=== PATIENT | male | born 1940 | race Caucasian/White ===

== ENCOUNTER → 2017-10-31 | Outpatient (CLI) | payer MEDICARE, BC | LOC: M SMT 13:39 | DX: N18.6 End stage renal disease (principal); R06.02 Shortness of breath; I12.0 Hypertensive chronic kidney disease with stage 5 chronic kidney disease or end stage renal disease | CPT/HCPCS: 71046 ==

== ENCOUNTER → 2017-12-21 | Outpatient (CLI) | payer MEDICARE, BC | LOC: M SMT 09:26 | DX: R06.02 Shortness of breath (principal); I13.2 Hypertensive heart and chronic kidney disease with heart failure and with stage 5 chronic kidney disease, or end stage renal disease; I50.32 Chronic diastolic (congestive) heart failure; Z99.2 Dependence on renal dialysis; N18.6 End stage renal disease | CPT/HCPCS: 71046 ==

== ENCOUNTER → 2018-02-14 | Outpatient (CLI) | payer MEDICARE, BC ==
[~2018-02-14] MED LIST: ISOVUE-370 76% 100ML VIAL (Q9967) As Ordered
== END ==
LOC: M RAD 10:36
DX: R06.02 Shortness of breath (principal)
CPT/HCPCS: Q9967

== ENCOUNTER 2018-02-26 07:39 | Emergency (ER) | payer MEDICARE, BC ==
[2018-02-26] MEDS: guaiFENesin SYRUP 200 MG/10 ML UDC PO (08:20)
== END 2018-02-26 08:53 | disposition home or self-care (01) ==
LOC: M ED 07:39
DX: J06.9 Acute upper respiratory infection, unspecified (principal); I10 Essential (primary) hypertension; Z86.711 Personal history of pulmonary embolism; Z85.46 Personal history of malignant neoplasm of prostate; Z87.891 Personal history of nicotine dependence; Z88.8 Allergy status to other drugs, medicaments and biological substances; Z79.899 Other long term (current) drug therapy; Z79.01 Long term (current) use of anticoagulants; Z79.82 Long term (current) use of aspirin
CPT/HCPCS: 71046

== ENCOUNTER → 2018-07-07 | Outpatient (CLI) | payer MEDICARE, BC ==
[~2018-07-07] MED LIST changes: +ASPI1TAB PO; +BUME2TAB3 PO; +CALC1CAP31 PO; +DIAL3000 PO; +ELIQ2.5T PO; +FISH1000 PO; +FISH100049 PO; +GUAISYP9 PO; -ISOVUE-370 76% 100ML VIAL (Q9967) As Ordered; +SENS60TA PO; +SEVE800T3 PO; +SIMV40TA2 PO; +TERA10CA3 PO; +TESS100C PO; +VITA500046 PO; +ZITHTAB PO
--- NOTE | 2018-07-07 12:39 | REP ---
Bilateral lower extremity Duplex Doppler venous ultrasound: Real time compression and duplex Doppler interrogation of the bilateral lower extremity deep venous system is performed. Bilaterally, the common femoral, superficial femoral and popliteal veins are fully compressible with transducer pressure and demonstrate normal spontaneous and phasic flow, without evidence of deep venous thrombosis. Impression: No evidence of deep venous thrombosis of the bilateral lower extremity femoral popliteal venous system. Electronically Signed by Isaiah Kim MD 07/07/2018 12:30 P
== END ==
LOC: M RAD 10:17
PROVIDERS: ATTEND Internal Medicine Nephrology
DX: N18.6 End stage renal disease (principal); R60.0 Localized edema; I27.82 Chronic pulmonary embolism

== ENCOUNTER → 2020-01-15 | Outpatient (REF) | payer MEDICARE, BC ==
[~2020-01-15] MED LIST changes: -ASPI1TAB PO; +ASPI81TA26 PO; -SIMV40TA2 PO; +SIMV40TA20 PO
== END ==
LOC: M LAB REF 19:22
PROVIDERS: ATTEND Dermatology
DX: C44.311 Basal cell carcinoma of skin of nose (principal)
CPT/HCPCS: 11102; 88305; G0463

== ENCOUNTER → 2020-03-13 | Outpatient (REF) | payer MEDICARE, BC | LOC: M LAB REF 14:30 | PROVIDERS: ATTEND Dermatology | DX: L90.5 Scar conditions and fibrosis of skin (principal) ==

== ENCOUNTER → 2020-04-03 | Outpatient (REF) | payer MEDICARE, BC | LOC: M LAB REF 13:05 | PROVIDERS: ATTEND Dermatology | DX: L57.0 Actinic keratosis (principal) ==

== ENCOUNTER 2020-06-20 16:19 | Inpatient (IN) | payer MEDICARE, BC ==
[~2020-06-20] VITALS: Ht 177.8 cm; Wt 87.2 kg
[~2020-06-20 16:19] MED LIST changes: +CEFEPIME HCL 1 GM in D5W MINI-BAG PLUS 50 ML IV SCH
[2020-06-20] MEDS ORDERED: FISH13602 PO (17:02)
[2020-06-20] MEDS ORDERED: SIMV40TA20 PO (17:02)
--- NOTE | 2020-06-20 18:26 | REPVR ---
PROCEDURE INFORMATION: Exam: CT Abdomen And Pelvis Without Contrast Exam date and time: 06/20/2020 5:32 PM Age: 79 years old Clinical indication: Abdominal pain; Additional info: Abdominal pain, peritoneal dialysis TECHNIQUE: Imaging protocol: Computed tomography of the abdomen and pelvis without contrast. Radiation optimization: All CT scans at this facility use at least one of these dose optimization techniques: automated exposure control; mA and/or kV adjustment per patient size (includes targeted exams where dose is matched to clinical indication); or iterative reconstruction. COMPARISON: No relevant prior studies available. FINDINGS: Tubes, catheters and devices: Peritoneal dialysis catheter demonstrated coiled in the pelvis. Liver: Normal. No mass. Gallbladder and bile ducts: Normal. No calcified stones. No ductal dilation. Pancreas: Normal. No ductal dilation. Spleen: Normal. No splenomegaly. Adrenal glands: Normal. No mass. Kidneys and ureters: Multiple bilateral renal cysts without obvious complex features. Correlation with ultrasound suggested if clinically desired. Stomach and bowel: Diverticulosis coli without diverticulitis. Boggy appearance of the distal transverse, left and sigmoid colon may be related to incomplete distention. Clinical correlation to exclude changes related to colitis suggested. Appendix: No evidence of appendicitis. Intraperitoneal space: There is a small amount of free intraperitoneal fluid present. Finding consistent with known history of peritoneal dialysis. Small amount of intraperitoneal air may be postprocedural. Clinical correlation to exclude infection suggested. Vasculature: The aortoiliac vessels demonstrate mild atherosclerotic calcification. Lymph nodes: Unremarkable. No enlarged lymph nodes. Urinary bladder: Unremarkable as visualized. Reproductive: Status post prostatectomy. Bones/joints: Unremarkable. No acute fracture. Soft tissues: Bilateral inguinal hernias without incarceration. IMPRESSION: 1. There is a small amount of free intraperitoneal fluid present. Finding consistent with known history of peritoneal dialysis. Small amount of intraperitoneal air may be postprocedural. Clinical correlation to exclude infection suggested. 2. Multiple bilateral renal cysts without obvious complex features. Correlation with ultrasound suggested if clinically desired. 3. Diverticulosis coli without diverticulitis. 4. Bilateral inguinal hernias without incarceration. 5. Boggy appearance of the distal transverse, left and sigmoid colon may be related to incomplete distention. Clinical correlation to exclude changes related to colitis suggested. COMMENTS: Consistent with the [employer]'s Incidental Findings Committee white paper (J Am Shady Radiol 2018): Any incidental renal lesion less than 1 cm or classified as too small to characterize, or any incidental cystic renal lesion characterized as simple-appearing, is likely benign. No follow-up imaging is recommended for these lesions per consensus recommendations based on imaging criteria. Electronically signed by: Alton Kumari On 06/20/2020 18:26:20 PM
--- NOTE | 2020-06-20 18:37 | REP ---
INDICATION: pleuritic abd pain. COMPARISON: 02/26/2018 a PA and lateral view exam TECHNIQUE: Portable FINDINGS: The technique utilized in obtaining the radiograph has magnified the cardiac silhouette and accentuated the interstitial markings. The superior mediastinal structures are midline. The cardiac silhouette is unremarkable in size, shape, and position. The diaphragmatic surfaces of the lungs are regular, and the costophrenic angles are clear. The pulmonary roth are clear. There is chronic left basilar fibrotic change status quo. The imaged osseous structures are intact. IMPRESSION: There is no acute cardiopulmonary disease. <Electronically signed by Jeremiah Chang > 06/20/20 [id number]
[2020-06-20 18:45] LABS: BASO % 0.1 % (0.0-1.0); EOS % 0.1 % (0.0-3.0); HEMATOCRIT 33.8 % (42.0-52.0); LYMPH # 0.7 10^3/uL (1.5-5.0); LYMPH % 3.9 % (24.0-44.0); MEAN CORPUSCULAR HEMOGLOBIN 34.6 pg (27.0-33.0); MEAN CORPUSCULAR HGB CONC 35.5 g/dl (32.0-36.5); MEAN CORPUSCULAR VOLUME 97.4 fl (80.0-96.0); MONO % 5.4 % (0.0-5.0); NEUTROPHILS # 17.1 10^3/uL (1.5-8.5); NEUTROPHILS % 89.9 % (36.0-66.0); PLATELET COUNT, AUTOMATED 168 10^3/uL (150-450); RED BLOOD COUNT 3.47 10^6/uL (4.30-6.10)
[2020-06-20 19:03] LABS: INR 0.98; PROTHROMBIN TIME 13.2 SECONDS (12.5-14.3)
[2020-06-20 19:04] LABS: PARTIAL THROMBOPLASTIN TIME 27.8 SECONDS (24.2-38.5)
[2020-06-20 19:26] LABS: ALBUMIN 2.9 GM/DL (3.2-5.2); ALT/SGPT 35 U/L (12-78); BILIRUBIN,DIRECT 0.3 MG/DL (0.0-0.2); BILIRUBIN,TOTAL 0.8 MG/DL (0.2-1.0); BLOOD UREA NITROGEN 52 MG/DL (7-18); CALCIUM LEVEL 8.9 MG/DL (8.8-10.2); CARBON DIOXIDE LEVEL 27 MEQ/L (21-32); CHLORIDE LEVEL 100 MEQ/L (98-107); CK-MB VALUE MASS 3.4 NG/ML (<3.6); CPK CREATINE PHOSPHOKINASE 100 U/L (39-308); CREATININE FOR GFR 8.61 MG/DL (0.70-1.30); GLOMERULAR FILTRATION RATE 6.4 (>42); GLUCOSE, FASTING 177 MG/DL (70-100); LIPASE 128 U/L (73-393); POTASSIUM SERUM 3.4 MEQ/L (3.5-5.1); SODIUM LEVEL 140 MEQ/L (136-145); TOTAL PROTEIN 6.6 GM/DL (6.4-8.2); TROPONIN I < 0.02 NG/ML (< 0.10)
[2020-06-20 19:53] LABS: VENOUS BASE EXCESS 1.7 (-2.0-2.0); VENOUS HCO3 26.9 MEQ/L (23.0-27.0); VENOUS O2 SATURATION 75.9 % (60.0-80.0); VENOUS PARTIAL PRESSURE CO2 44.5 mmHg (38.0-50.0); VENOUS PARTIAL PRESSURE O2 42.4 mmHg (30.0-50.0); VENOUS PH 7.399 UNITS (7.330-7.430); VENOUS STANDARD HCO3 25.5 MEQ/L; VENOUS TOTAL CO2 28.3 MEQ/L (24.0-28.0)
[2020-06-20] MEDS ORDERED: CINA30TA5 PO (20:28)
[2020-06-20] MEDS ORDERED: CINA60TA3 PO (20:31)
[2020-06-20] MEDS ORDERED: VITA200048 PO (20:31)
[2020-06-20] MEDS: SIMVASTATIN 40 MG TAB PO SCH (21:00)
--- NOTE | 2020-06-20 21:12 | ECGEPIP ---
[facility] - ED Test Date: 2020-06-20 Pat Name: WILBUR HERNANDEZ Department: Room: - Gender: Male Patient Partner: marco : [id number] Requested By: JACKIE Richards Order Number: [id number] Reading MD: Connie Navarrete Measurements Intervals [place] Rate: 78 P: 6 VA: 196 QRS: -33 QRSD: 102 T: 71 QT: 365 QTc: 417 Interpretive Statements SINUS RHYTHM MARKED LEFT AXIS DEVIATION NSTTW abnormalities POSSIBLE PRIOR INFERIOR INFARCT, AGE INDETERMINATE NO PRIOR Electronically Signed on 06-20-2020 21:12:06 EST by Connie Navarrete
[2020-06-20] MEDS: ONDANSETRON 4MG/2ML VIAL IV PRN (21:48)
[2020-06-20] MEDS ORDERED: ACETAMINOPHEN TAB 650MG DOSE (2X325MG) PO PRN (22:00)
[2020-06-20] MEDS ORDERED: VANCOMYCIN HCL 1,000 MG, VIAL MATE ADAPTER 1 EACH in D5W 250 ML IV SCH (22:30)
--- NOTE | 2020-06-20 23:09 | HPEPDOC ---
[facility] Medical History & Physical Date of Admission Jun 20, 2020 Date of Service: Jun 20, 2020 Primary Care Physician: Elian Vizcaino MD Attending Physician: SRIDHAR KOLB MD History and Physical CHIEF COMPLAINT: abdominal pain HISTORY OF PRESENT ILLNESS: Miguel Gonsalez is a 79 YO M with history of ESRD on PD, HTN, CAD who presents to the ED with several hours 8/10 abdominal pain. The patient reports he completed his overnight dialysis as he normally does around 8 AM. There were no issues with his dialysis. At approximately 10:30 AM, the patient began to experience severe sharp periumbilical pain which progressively worsened. In addition he experienced several bouts of nausea and vomiting. He denies any recent illnesses nor any sick contacts. He reports that he has been doing peritoneal dialysis for over 20 years and has never had any complications. He sees Dr. Vizcaino very regularly and has not been told of any issues regarding his dialysis recently. The patient denies any fevers but does report having chills and intermittent sweats. PAST MEDICAL HISTORY: 1. ESRD on PD 2. HTN 3. CAD s/p VT PAST SURGICAL HISTORY: 1. Nonmelanoma skin cancer of left nose, 1999 SOCIAL HISTORY: Never smoker Denies EtOH, other illicit drugs Lives at home with FAMILY HISTORY: Reviewed and noncontributory ALLERGIES: Please see below. REVIEW OF SYSTEMS: Constitutional: No Weight Change, No Fever, No Chills, No Night Sweats, No Fatigue, No Malaise ENT/Mouth: No Hearing Changes, No Ear Pain, No Nasal Congestion, No Sinus Pain, No Hoarseness, No sore throat, No Rhinorrhea, No Swallowing Difficulty Eyes: No Eye Pain, No Swelling, No Redness, No Foreign Body, No Discharge, No Vision Changes Cardiovascular: No Chest Pain, No SOB, No PND, No Dyspnea on Exertion, No Orthopnea, No Claudication, No Edema, No Palpitations Respiratory: No Cough, No Wheezing, No Dyspnea Gastrointestinal: Reports nausea/vomiting, denies diarrhea, reports 8/10 sharp abdominal pain at the umbilicus Genitourinary: No Dysuria Musculoskeletal: No Arthralgias, No Myalgias, No Joint Swelling, No Joint Stiffness, No Back Pain, No Neck Pain Skin: No Skin Lesions, No Pruritis, No Hair Changes, No Breast/Skin Changes, No Nipple Discharge Neuro: No Weakness, No Numbness, No Paresthesias, No Loss of Consciousness, No Syncope, No Dizziness, No Headache, No Coordination Changes, No Recent Falls Psych: No Anxiety/Panic, No Depression, No Insomnia, No Personality Changes, No Delusions Heme/Lymph: No Bruising, No Bleeding, No Transfusions History, No Lymphadenopathy Endocrine: No Polyuria, No Polydipsia, No Temperature Intolerance HOME MEDICATIONS: Please see below. PHYSICAL EXAMINATION: VITAL SIGNS: see below GENERAL: alert and oriented, in no apparent distress, pleasant and conversant in full sentences. Patient observed to be actively vomiting during my examination HEENT: PERRL, EOMI, Oral mucous membranes are moist without lesions. NECK: The patient has no noted JVD. No adenopathy is appreciated. No thyromegaly CHEST/LUNGS: Lungs are clear bilaterally without rhonchi, rales, or wheezes. There is no subcutaneous air appreciated. There is no tenderness to the chest w all. HEART: Regular rate and rhythm. No murmurs, rubs, or gallops are appreciated. Distal pulses are 2+. No carotid bruits appreciated. ABDOMEN: Tender to light palpation around the umbilicus and in the left lower quadrant. Slightly tender in RUQ/RLQ. Are of PD catheter insertion is clean/dry/intact. Positive bowel sounds. No masses/organomegaly EXTREMITIES: No peripheral edema. There is no focal long bone tenderness or deformity. SKIN: The patients skin is warm and dry, without rashes or lesions. PSYCHIATRIC: AAO x 3, normal mood/affect NEUROLOGIC: No obvious focal deficits. LABORATORY DATA: See below. IMAGING: CXR: FINDINGS: The technique utilized in obtaining the radiograph has magnified the cardiac silhouette and accentuated the interstitial markings. The superior mediastinal structures are midline. The cardiac silhouette is unremarkable in size, shape, and position. The diaphragmatic surfaces of the lungs are regular, and the costophrenic angles are clear. The pulmonary roth are clear. There is chronic left basilar fibrotic change status quo. The imaged osseous structures are intact. IMPRESSION: There is no acute cardiopulmonary disease. CT ABD/PEL: IMPRESSION: 1. There is a small amount of free intraperitoneal fluid present. Finding consistent with known history of peritoneal dialysis. Small amount of intraperitoneal air may be postprocedural. Clinical correlation to exclude infection suggested. 2. Multiple bilateral renal cysts without obvious complex features. Correlation with ultrasound suggested if clinically desired. 3. Diverticulosis coli without diverticulitis. 4. Bilateral inguinal hernias without incarceration. 5. Boggy appearance of the distal transverse, left and sigmoid colon may be related to incomplete distention. Clinical correlation to exclude changes related to colitis suggested. MICROBIOLOGY: Please see below. ASSESSMENT: This is a 79 YO M with history of ESRD on PD, HTN, CAD who presents with several hours episode 8/10 abdominal (umbilcal) pain, nausea and vomiting found to have leukocytosis and lactic acidosis concerning for peritonitis. PLAN: 1. Possible peritonitis 2/2 chronic peritoneal dialysis: -Lactic acid noted at 3.3 and WBC elevated at 19.0 -Fluid cultures ordered and pending -Blood cultures pending -ED MD contacted Nephrology (Niko Vizcaino) who recommended exchange protocol (ordered). -Empiric Vancomycin and Cefepime to be started after fluid cultures from PD catheter drawn -CT Abd concerning for free intraperitoneal air, which may represent infection -Nephrology consult in place. Appreciate recommendations. -Zofran for nausea 2. ESRD on PD: -Cr noted to be 8.61 -Continue home Bumex, Calcitriol, Sensipar, Renvela 3. Hx of HTN: -Not on home BP 4. CAD: -continue home ASA, Simvastatin DVT ppx: TEDs/SCDs DISPO: Pending further workup, clinical improvement Vital Signs Vital Signs Date Time Temp Pulse Resp B/P (MAP) Pulse Ox O2 Delivery O2 Flow Rate FiO2 06/20/20 21:15 81 19 170/74 (106) 95 Room Air 06/20/20 16:20 99.0 Laboratory Data Labs 24H Laboratory Tests 2 06/20/20 18:33: Immature Granulocyte % (Auto) 0.6, Neutrophils (%) (Auto) 89.9H, Lymphocytes (%) (Auto) 3.9L, Monocytes (%) (Auto) 5.4H, Eosinophils (%) (Auto) 0.1, Basophils (%) (Auto) 0.1, Neutrophils # (Auto) 17.1H, Lymphocytes # (Auto) 0.7L, Monocytes # (Auto) 1.0H, Eosinophils # (Auto) 0.0, Basophils # (Auto) 0.0, Nucleated Red Blood Cells % (auto) 0.0, Prothrombin Time 13.2, Prothromb Time International Ratio 0.98, Activated Partial Thromboplast Time 27.8, Anion Gap 13, Glomerular Filtration Rate 6.4L, Lactic Acid Level 3.3*H, Calcium Level 8.9, Total Bilirubin 0.8, Direct Bilirubin 0.3H, Aspartate Amino Transf (AST/SGOT) 19, Alanine Aminotransferase (ALT/SGPT) 35, Alkaline Phosphatase 52, Total Creatine Kinase 100, Creatine Kinase MB 3.4, Creatine Kinase MB Relative Index 3.40, Tro ponin I < 0.02, Total Protein 6.6, Albumin 2.9L, Albumin/Globulin Ratio 0.8, Lipase 128 06/20/20 19:47: Blood Gas Bicarbonate Standard 25.5, Venous Blood pH 7.399, Venous Blood Partial Pressure CO2 44.5, Venous Blood Partial Pressure O2 42.4, Venous Blood Total Carbon Dioxide 28.3H, Venous Blood HCO3 26.9, Venous Blood Oxygen Saturation 75.9, Venous Blood Base Excess 1.7 CBC/BMP Laboratory Tests 06/20/20 18:33 Microbiology Microbiology 06/20/20 Respiratory Virus Panel (PCR) ([facility]) - Final, Complete 06/20/20 Blood Culture, Received Pending 06/20/20 Blood Culture, Received Pending Home Medications Scheduled Aspirin (Aspirin EC) 81 Mg Tab, 81 MG PO DAILY Bumetanide (Bumetanide) 2 Mg Tab, 2 MG PO DAILY Calcitriol (Calcitriol) 0.25 Mcg Cap, 0.25 MCG PO DAILY Cinacalcet HCl (Cinacalcet HCl) 60 Mg Tablet, 60 MG PO DAILY Ergocalciferol (Vitamin D2) (Vitamin D2) 50 Mcg Capsule, 2,000 UNIT PO DAILY Folic Acid/B Cplx/C/Selen/Zinc (Dialyvite 3,000 Tablet) 1 Tab Tab, 1 TAB PO DAILY Errol-3S/Dha/Epa/Fish Oil (Fish Oil Errol-3 Softgel) 1 Each Capsule.dr, 4 CAP PO DAILY Sevelamer Carbonate (Sevelamer Carbonate) 800 Mg Tab, 1 TAB PO DAILY Simvastatin (Simvastatin) 40 Mg Tablet, 20 MG PO QPM Allergies Coded Allergies: sodium bicarbonate (Verified Adverse Reaction, Unknown, rash, 06/20/20) A-FIB/CHADSVASC A-FIB History Current/History of A-Fib/PAF?: No Current PO Anticoag Therapy: No GME ATTESTATION GME ATTESTATION My faculty preceptor for this patient encounter was physically present during the encounter and was fully available. All aspects of the patient interview, examination, medical decision making process, and medical care plan development were reviewed and approved by the faculty preceptor. The faculty preceptor is aware and concurs with the plan as stated in the body of this note and will attest to such by his/her cosignature. ATTENDING NOTE time of service 1044pm is a 79 yr old M with history of ESRD on PD, HTN, CAD who presented w abd pain & will be admitted for possible peritonitis Plan: f/u w Nephro and on peritoneal fluid studies rest per 's H&P KYMBERLY LAWSON MD Jun 20, 2020 23:09 SRIDHAR KOLB MD Jun 21, 2020 02:14
[2020-06-21 01:05] VITALS: BP 150/70
[2020-06-21 04:00] VITALS: BP 145/67
[2020-06-21] MEDS ORDERED: CEFEPIME HCL 1 GM in D5W MINI-BAG PLUS 50 ML IV SCH (04:36)
[2020-06-21 04:43] LABS: APPEARANCE, BODY FLUID CLOUDY (CLEAR); PERITONEAL FL COLOR PALE YELLOW (COLORLESS); SOURCE, BODY FLUID PERITONEAL
[2020-06-21] MEDS ORDERED: VANCOMYCIN HCL 1,000 MG, VIAL MATE ADAPTER 1 EACH in D5W 250 ML IV ONE (05:00)
[2020-06-21] MEDS: CEFEPIME HCL 1 GM in D5W MINI-BAG PLUS 50 ML IV SCH (06:50)
[2020-06-21 07:09] LABS: HEMATOCRIT 30.4 % (42.0-52.0); HEMOGLOBIN 10.7 g/dl (13.5-17.5); MEAN CORPUSCULAR HEMOGLOBIN 35.1 pg (27.0-33.0); MEAN CORPUSCULAR HGB CONC 35.2 g/dl (32.0-36.5); MEAN CORPUSCULAR VOLUME 99.7 fl (80.0-96.0); PLATELET COUNT, AUTOMATED 144 10^3/uL (150-450); RED BLOOD COUNT 3.05 10^6/uL (4.30-6.10); WHITE BLOOD COUNT 18.5 10^3/uL (4.0-10.0)
[2020-06-21 07:39] LABS: ALBUMIN 2.3 GM/DL (3.2-5.2); CALCIUM LEVEL 8.5 MG/DL (8.8-10.2); CREATININE FOR GFR 8.75 MG/DL (0.70-1.30); GLOMERULAR FILTRATION RATE 6.3 (>42); MAGNESIUM LEVEL 1.3 MG/DL (1.8-2.4); POTASSIUM SERUM 3.6 MEQ/L (3.5-5.1); TOTAL PROTEIN 5.8 GM/DL (6.4-8.2)
[2020-06-21 08:00] VITALS: BP 148/70
[2020-06-21] MEDS: CINACALCET 30 MG TAB (SENSIPAR) PO SCH (08:53)
[2020-06-21] MEDS: (RENVELA) SEVELAMER **CARBONate** 800 MG TAB PO SCH ×3 (08:53→17:49)
[2020-06-21] MEDS: CALCITRIOL 0.25 MCG CAP (S0169) PO SCH (08:53)
[2020-06-21] MEDS: ASPIRIN 81 MG ENTERIC TAB PO SCH (08:53)
[2020-06-21] MEDS ORDERED: POTASSIUM CHLORIDE 10 MEQ SR TABLET PO ONE (09:00)
[2020-06-21] MEDS ORDERED: BUMETANIDE 1 MG TAB PO SCH (09:00)
[2020-06-21] MEDS ORDERED: VANCOMYCIN INTERMITTENT/PULSE DOSING BY CLINICAL PHARMACIST PER DOSING PROTOCOL XX SCH (09:00)
[2020-06-21] MEDS ORDERED: MAG SULF 1GM/100ML (MAG RUN) 1 GM in IV 1 EA IV ONE (11:00)
--- NOTE | 2020-06-21 11:42 | IPNPDOC ---
Text Note Date of Service The patient was seen on 06/21/20. NOTE SUBJECTIVE: -Feels much better already but still a little bit nauseous at times PHYSICAL EXAMINATION: VITAL SIGNS: see below GENERAL: alert and oriented, in no apparent distress, pleasant and conversant in full sentences. HEENT: NCAT, EOMI, MMM NECK: The patient has no noted JVD. No adenopathy is appreciated. No thyromegaly CHEST/LUNGS: Lungs are clear bilaterally without rhonchi, rales, or wheezes. There is no subcutaneous air appreciated. There is no tenderness to the chest wall. HEART: Regular rate and rhythm. No murmurs, rubs, or gallops are appreciated. Distal pulses are 2+. No carotid bruits appreciated. ABDOMEN: Normoactive bowel sounds, continues to be tender to palpation. PD catheter insertion is clean/dry/intact. EXTREMITIES: No peripheral edema. There is no focal long bone tenderness or deformity. SKIN: The patients skin is warm and dry, without rashes or lesions. PSYCHIATRIC: AAO x 3, normal mood/affect NEUROLOGIC: No obvious focal deficits. LABORATORY DATA: Reviewed WBC 18.4 Hgb 10.7 platelets 101 na 138 K 3.6 Cr 8.75 mag 1.3 fluid WBC count 7661 with 94% PMNs IMAGING: CXR: FINDINGS: The technique utilized in obtaining the radiograph has magnified the cardiac silhouette and accentuated the interstitial markings. The superior mediastinal structures are midline. The cardiac silhouette is unremarkable in size, shape, and position. The diaphragmatic surfaces of the lungs are regular, and the costophrenic angles are clear. The pulmonary roth are clear. There is chronic left basilar fibrotic change status quo. The imaged osseous structures are intact. IMPRESSION: There is no acute cardiopulmonary disease. CT ABD/PEL: IMPRESSION: 1. There is a small amount of free intraperitoneal fluid present. Finding consistent with known history of peritoneal dialysis. Small amount of intraperitoneal air may be postprocedural. Clinical correlation to exclude infection suggested. 2. Multiple bilateral renal cysts without obvious complex features. Correlation with ultrasound suggested if clinically desired. 3. Diverticulosis coli without diverticulitis. 4. Bilateral inguinal hernias without incarceration. 5. Boggy appearance of the distal transverse, left and sigmoid colon may be related to incomplete distention. Clinical correlation to exclude changes related to colitis suggested. MICROBIOLOGY: Please see below. ASSESSMENT: 79 YO M with history of ESRD on PD, HTN, CAD who presented with several hours episode 8/10 abdominal (umbilcal) pain, nausea and vomiting found to have leukocytosis and lactic acidosis with ongoing peritonitis. PLAN: 1. peritonitis i/s/o chronic peritoneal dialysis: -Lactic acid noted at 3.3 and WBC elevated at 19.0 on admission -Fluid culture pending -Blood cultures pending -Nephrology consulted, PD per their recommendations -continue empiric Vancomycin and Cefepime -CT Abd with some free intraperitoneal air, which may represent infection vs. chronic PD -Zofran PRN for nausea 2. ESRD on PD: -Cr noted to be 8.61 -Hold Bumex -Continue Calcitriol, Sensipar, Renvela 3. Hx of HTN: -Hold bumex 4. CAD: -continue home ASA, Simvastatin DVT ppx: TEDs/SCDs DISPO: Pending clinical improvement VS,Fishbone, I+O VS, Fishbone, I+O Laboratory Tests 06/20/20 18:33 06/21/20 06:20 Vital Signs Date Time Temp Pulse Resp B/P (MAP) Pulse Ox O2 Delivery O2 Flow Rate FiO2 06/21/20 08:00 98.5 65 16 148/70 (96) 96 Room Air I&O- Last 24 Hours up to 6 AM 06/21/20 06:00 Intake Total 4300 ml Output Total 3500 ml Balance 800 ml KHANG MASON MD Jun 21, 2020 10:04
[2020-06-21 12:00] VITALS: BP 140/71
--- NOTE | 2020-06-21 15:56 | CR ---
NEPHROLOGY CONSULTATION DATE: 06/21/2020 REFERRING PHYSICIAN: Harmony Carballo MD REASON FOR CONSULTATION: To assist in the management of end-stage renal disease. HISTORY OF PRESENT ILLNESS: Mr. Gonsalez is a 79-year-old gentleman with known history of end-stage renal disease, currently on peritoneal dialysis. He presented to the emergency room with severe abdominal pain and was felt to have peritonitis. CT scan of abdomen and pelvis done in the emergency room did not show any other acute pathology. It is important to note that patient has been on peritoneal dialysis for a number of years. However, he never had peritonitis so far and this is his first episode. PAST MEDICAL HISTORY: 1. Hypertension. 2. End-stage renal disease. 3. Coronary artery disease with prior NE. 4. Secondary hyperparathyroidism. 5. Hyperlipidemia. 6. History of congestive heart failure. PAST SURGICAL HISTORY: Significant for skin cancer removal from left side of nose. PERSONAL AND SOCIAL HISTORY: The patient is and lives with his . He does not smoke or drink. There is no history of drug use. FAMILY HISTORY: Noncontributory. HOME MEDICATIONS: 1. Aspirin 81 mg daily. 2. Bumetanide 2 mg daily. 3. Calcitriol 0.25 mcg daily. 4. Cinacalcet 60 mg daily. 5. Vitamin D 2000 units daily. 6. Multivitamin one tablet daily. 7. Renvela 800 mg t.i.d. with meals. 8. Simvastatin 40 mg daily. ALLERGIES: THE PATIENT HAS ALLERGY TO SODIUM BICARBONATE. REVIEW OF SYSTEMS: He did not fell well yesterday with severe abdominal pain. He did not eat well, either. He denies any high grade fever or chills. Ears, nose and throat are unremarkable. Cardiovascular system: Negative for dyspnea or chest pain. Respiratory system is negative for cough or hemoptysis. GI system: Negative for diarrhea or vomiting. He presented with severe abdominal pain. system is significant for end-stage renal disease. He denies any dysuria or hematuria. Musculoskeletal system: Significant for leg edema which has been under control with a diuretic and dialysis. Hematological system is negative for any fci anticoagulation. He does not have significant anemia. Psychosocial system is negative for depression and anxiety. Neurological system: Negative for seizures or stroke. PHYSICAL EXAMINATION: The patient is awake, sitting at the edge of bed. He is not in any true distress. Vital signs: Temperature 97.3 degrees Fahrenheit, heart is 66 per minute and respiratory rate 18 per minute. Blood pressure 140/71 mmHg and oxygen saturation 95% on room air. His head is atraumatic. Neck: Supple and without JVD or thyroid enlargement. Heart sounds are regular and lung sounds clear to auscultation. Abdomen is soft and nontender and bowel sounds are normal. Peritoneal dialysis catheter is intact. Extremities have no cyanosis or clubbing. Neurologically he is awake, alert and oriented x3. LABORATORY DATA: On admission his WBC count was 19.0, hemoglobin 12.0 and hematocrit 33.8. This morning, WBC count is down to 18.5, hemoglobin 10.7 and hematocrit 30.4. Platelets 144. Peritoneal dialysis solution: Cell count showed a total white blood cell count of 7661 and 94% neutrophils. His blood gas showed a pH of 7.4, pCO2 44.5 and pO2 42.4 on a venous blood gas. CT scan of abdomen and pelvis was done in the emergency room which did not show any acute findings. A small amount of free intraperitoneal fluid related to peritoneal dialysis and multiple bilateral renal cysts, diverticulosis without any diverticulitis and bilateral inguinal hernia. PROBLEMS: 1. Abdominal pain most likely cause by acute peritonitis. His peritonitis is related to peritoneal dialysis. He has already received intravenous cefepime and vancomycin. I would recommend not to give him intravenous vancomycin anymore. I will give him one dose of intraperitoneal vancomycin tonight and stop the intravenous vancomycin. We will continue with cefepime pending culture results. We will also check his peritoneal fluid cell count on a daily basis. 2. End-stage renal disease. The patient missed his dialysis last night and we will start with peritoneal dialysis, five exchanges per day with two liters a bag. 3. Hypertension. Blood pressure seems to be well controlled. His chronic antihypertensives should continue. 4. Congestive heart failure and leg edema. His volume status is well compensated and he is not eating or drinking much. I am going to stop his diuretic for now. 5. Hypomagnesemia. His magnesium level was low and he has been given one dose of magnesium sulfate 1 gm. Thank you for involving me in the care of Mr. Gonsalez. I will follow him along with you.
[2020-06-21 16:00] VITALS: BP 146/81
[2020-06-21 20:00] VITALS: BP 142/52
[2020-06-21] MEDS: SIMVASTATIN 40 MG TAB PO SCH (20:45)
[2020-06-21] MEDS ORDERED: VANCOMYCIN 1000MG/20ML VIAL IP ONE (22:00)
[2020-06-22] VITALS: BP 136/72
[2020-06-22 04:00] VITALS: BP 117/68
[2020-06-22] MEDS: CEFEPIME HCL 1 GM in D5W MINI-BAG PLUS 50 ML IV SCH (06:00)
[2020-06-22 08:28] VITALS: BP 182/78
[2020-06-22 09:11] LABS: HEMATOCRIT 33.2 % (42.0-52.0); HEMOGLOBIN 11.8 g/dl (13.5-17.5); MEAN CORPUSCULAR HGB CONC 35.5 g/dl (32.0-36.5); MEAN CORPUSCULAR VOLUME 98.5 fl (80.0-96.0); PLATELET COUNT, AUTOMATED 162 10^3/uL (150-450); RED BLOOD COUNT 3.37 10^6/uL (4.30-6.10); WHITE BLOOD COUNT 11.7 10^3/uL (4.0-10.0)
[2020-06-22 09:34] LABS: APPEARANCE, BODY FLUID CLEAR (CLEAR); PERITONEAL DIALYSATE FL COLOR COLORLESS (COLORLESS); SOURCE, BODY FLUID PERITONEAL DIALYSATE
[2020-06-22 09:48] LABS: ALBUMIN 2.5 GM/DL (3.2-5.2); BILIRUBIN,TOTAL 0.7 MG/DL (0.2-1.0); CALCIUM LEVEL 9.2 MG/DL (8.8-10.2); CREATININE FOR GFR 8.39 MG/DL (0.70-1.30); GLOMERULAR FILTRATION RATE 6.6 (>42); POTASSIUM SERUM 3.5 MEQ/L (3.5-5.1); TOTAL PROTEIN 6.5 GM/DL (6.4-8.2)
[2020-06-22] MEDS ORDERED: POTASSIUM CHLORIDE 10 MEQ SR TABLET PO ONE (10:30)
[2020-06-22] MEDS: (RENVELA) SEVELAMER **CARBONate** 800 MG TAB PO SCH ×3 (11:13→18:00)
[2020-06-22] MEDS: ASPIRIN 81 MG ENTERIC TAB PO SCH (11:13)
[2020-06-22] MEDS: SIMVASTATIN 40 MG TAB PO SCH (11:14)
[2020-06-22] MEDS: CINACALCET 30 MG TAB (SENSIPAR) PO SCH (11:14)
[2020-06-22] MEDS: CALCITRIOL 0.25 MCG CAP (S0169) PO SCH (11:14)
[2020-06-22] MEDS: DOCUSATE SODIUM 100MG CAPSULE PO SCH ×2 (12:00→20:43)
[2020-06-22 12:12] VITALS: BP 158/78
--- NOTE | 2020-06-22 13:16 | IPNPDOC ---
Text Note Date of Service The patient was seen on 06/22/20. NOTE SUBJECTIVE: -Feels much better, nausea has resolved PHYSICAL EXAMINATION: VITAL SIGNS: see below GENERAL: alert and oriented, in no apparent distress, pleasant and conversant in full sentences. HEENT: NCAT, EOMI, MMM NECK: The patient has no noted JVD. No adenopathy is appreciated. No thyromegaly CHEST/LUNGS: Lungs are clear bilaterally without rhonchi, rales, or wheezes. There is no subcutaneous air appreciated. There is no tenderness to the chest wall. HEART: Regular rate and rhythm. No murmurs, rubs, or gallops are appreciated. Distal pulses are 2+. No carotid bruits appreciated. ABDOMEN: Normoactive bowel sounds, nontender today. PD catheter insertion is clean/dry/intact. EXTREMITIES: No peripheral edema. There is no focal long bone tenderness or deformity. SKIN: The patients skin is warm and dry, without rashes or lesions. PSYCHIATRIC: AAO x 3, normal mood/affect NEUROLOGIC: No obvious focal deficits. LABORATORY DATA: Reviewed WBC 11.7 Hgb 11.8 platelets 162 fluid WBC count now down fro 7661 to 221 MRSA negative IMAGING: CXR: FINDINGS: The technique utilized in obtaining the radiograph has magnified the cardiac silhouette and accentuated the interstitial markings. The superior mediastinal structures are midline. The cardiac silhouette is unremarkable in size, shape, and position. The diaphragmatic surfaces of the lungs are regular, and the costophrenic angles are clear. The pulmonary roth are clear. There is chronic left basilar fibrotic change status quo. The imaged osseous structures are intact. IMPRESSION: There is no acute cardiopulmonary disease. CT ABD/PEL: IMPRESSION: 1. There is a small amount of free intraperitoneal fluid present. Finding consistent with known history of peritoneal dialysis. Small amount of intraperitoneal air may be postprocedural. Clinical correlation to exclude infection suggested. 2. Multiple bilateral renal cysts without obvious complex features. Correlation with ultrasound suggested if clinically desired. 3. Diverticulosis coli without diverticulitis. 4. Bilateral inguinal hernias without incarceration. 5. Boggy appearance of the distal transverse, left and sigmoid colon may be related to incomplete distention. Clinical correlation to exclude changes related to colitis suggested. MICROBIOLOGY: Please see below. ASSESSMENT: 79 YO M with history of ESRD on PD, HTN, CAD who presented with several hours episode 8/10 abdominal (umbilcal) pain, nausea and vomiting found to have leukocytosis and lactic acidosis with ongoing peritonitis. PLAN: 1. peritonitis i/s/o chronic peritoneal dialysis: -Lactic acid noted at 3.3 and WBC elevated at 19.0 on admission -Fluid culture pending -Blood cultures NGTD -Nephrology consulted, PD per their recommendations -continue Cefepime, day #3 -CT Abd with some free intraperitoneal air, which may represent infection vs. chronic PD -Zofran PRN for nausea 2. ESRD on PD: -Cr noted to be 8.61 -Hold Bumex -Continue Calcitriol, Sensipar, Renvela -on PD per nephrology 3. Hx of HTN: -Holding bumex per nephrology 4. CAD: -continue home ASA, Simvastatin DVT ppx: TEDs/SCDs DISPO: Pending clinical improvement VS,Fishbone, I+O VS, Fishbone, I+O Laboratory Tests 06/22/20 08:59 Vital Signs Date Time Temp Pulse Resp B/P (MAP) Pulse Ox O2 Delivery O2 Flow Rate FiO2 06/22/20 12:12 96.8 60 18 158/78 (104) 96 Room Air I&O- Last 24 Hours up to 6 AM 06/22/20 06:00 Intake Total 84421 ml Output Total 92165 ml Balance 960 ml KHANG MASON MD Jun 22, 2020 13:16
[2020-06-22] MEDS: ONDANSETRON 4MG/2ML VIAL IV PRN (13:59)
[2020-06-22 16:02] VITALS: BP 154/74
--- NOTE | 2020-06-22 17:47 | IPN ---
PROGRESS NOTE DATE: 06/22/2020 Mr. Gonsalez is seen this morning on his bedside. He feels that he got confused last night, but feeling better this morning. He ate well and denies any nausea or vomiting. His abdominal pain has improved. PHYSICAL EXAMINATION: Temperature 97 degrees Fahrenheit, heart rate 80 per minute, respiratory rate 18 per minute, blood pressure 117/68 mmHg early this morning and now it is 182/78 mmHg with oxygen saturation 97%. HEAD: Atraumatic. NECK: Supple and without jugular venous distention (JVD) or thyroid enlargement. HEART SOUNDS: Regular. LUNGS: Clear to auscultation. ABDOMEN: Soft and nontender. Peritoneal dialysis catheter is intact. EXTREMITIES: Have no cyanosis or clubbing. NEUROLGOCIAL: He is awake and alert at his baseline mentation. He is slightly emotionally upset. His peritoneal dialysis has been functioning very well. This morning, peritoneal fluid white cell count is down to 221. Cultures are still pending. The rest of his laboratories showed a sodium of 135, potassium 3.5, BUN 55, creatinine 8.39, glucose 218, calcium 9.2. WBC is down to 11.7, hemoglobin 11.8, hematocrit 32.2. PROBLEMS: 1. Peritonitis. Patient is improving nicely. He was given vancomycin 1 gram intraperitoneally last evening while he has already received one dose of intravenous vancomycin 1 gram. He is also receiving intravenous cefepime every 12 hours. We will continue with the same pending the culture results. Blood cultures are negative so far. 2. End-stage renal disease. Patient remains on peritoneal dialysis with five exchanges per day and we will continue with the same. 3. Hypokalemia. This is nutritional and related to peritoneal dialysis. Patient will be given one dose of potassium chloride 40 mEq today. 4. Constipation. I am going to start him on Colace 100 mg twice a day. If he does not have a bowel movement in the next 24 hours, then we will consider giving him a dose of Senokot.
[2020-06-22 20:00] VITALS: BP 148/72
[2020-06-22] MEDS ORDERED: METOCLOPRAMIDE INJ 10MG/2ML VIAL (J2765 PER 1) IV ONE (21:00)
[2020-06-23] VITALS: BP 157/68
[2020-06-23 04:00] VITALS: BP 137/96
[2020-06-23 05:10] LABS: HEMATOCRIT 31.1 % (42.0-52.0); HEMOGLOBIN 10.7 g/dl (13.5-17.5); MEAN CORPUSCULAR HEMOGLOBIN 34.1 pg (27.0-33.0); MEAN CORPUSCULAR HGB CONC 34.4 g/dl (32.0-36.5); PLATELET COUNT, AUTOMATED 159 10^3/uL (150-450); RED BLOOD COUNT 3.14 10^6/uL (4.30-6.10)
[2020-06-23 05:28] LABS: ALBUMIN 2.2 GM/DL (3.2-5.2); BILIRUBIN,TOTAL 0.4 MG/DL (0.2-1.0); CREATININE FOR GFR 8.2 MG/DL (0.70-1.30); GLOMERULAR FILTRATION RATE 6.8 (>42); POTASSIUM SERUM 3.3 MEQ/L (3.5-5.1); TOTAL PROTEIN 6.5 GM/DL (6.4-8.2)
[2020-06-23] MEDS: CEFEPIME HCL 1 GM in D5W MINI-BAG PLUS 50 ML IV SCH (05:35)
[2020-06-23 06:45] LABS: APPEARANCE, BODY FLUID CLEAR (CLEAR); PERITONEAL DIALYSATE FL COLOR COLORLESS (COLORLESS); SOURCE, BODY FLUID PERITONEAL DIALYSATE
[2020-06-23 08:00] VITALS: BP 132/62
[2020-06-23] MEDS ORDERED: POTASSIUM CHLORIDE 10 MEQ SR TABLET PO ONE (08:15)
[2020-06-23] MEDS: ASPIRIN 81 MG ENTERIC TAB PO SCH (08:39)
[2020-06-23] MEDS: DOCUSATE SODIUM 100MG CAPSULE PO SCH (08:39)
[2020-06-23] MEDS: (RENVELA) SEVELAMER **CARBONate** 800 MG TAB PO SCH (08:39)
[2020-06-23] MEDS: CINACALCET 30 MG TAB (SENSIPAR) PO SCH (08:39)
[2020-06-23] MEDS: CALCITRIOL 0.25 MCG CAP (S0169) PO SCH (08:40)
[2020-06-23] MEDS ORDERED: VANCOMYCIN 1000MG/20ML VIAL IP ONE (10:00)
--- NOTE | 2020-06-23 12:30 | IPN ---
NEPHROLOGY PROGRESS NOTE DATE: 06/23/20 SUBJECTIVE: Mr. Gonsalez is seen this morning on his bedside. He is sitting in the chair eating breakfast. He is feeling much better and his abdominal pain has resolved. He denies any dyspnea or chest pain. He is being treated with vancomycin and cefepime for peritonitis. His peritoneal fluid culture came back positive for Staph epi. Blood cultures have been negative so far. PHYSICAL EXAMINATION: Temperature 97.2 degrees Fahrenheit, heart rate 68 per minute and respiratory rate 18 per minute. Blood pressure 132/62 mmHg and oxygen saturation 95% on room air. Head: Atraumatic. Neck: Supple and without JVD or thyroid enlargement. Heart: Sounds are regular. Lungs: Clear to auscultation. Abdomen: Soft and nontender. Peritoneal dialysis catheter is intact. Extremities: No cyanosis or clubbing. Neurologically: He is awake, alert and oriented times 3. LABORATORY DATA: Today's labs show WBC count down to 9, hemoglobin 10.7, hematocrit 31.1, platelets 159. Sodium 137, potassium 3.3, BUN 54, creatinine 8.2, glucose 169, calcium 9. Peritoneal fluid cell count is down to 40 and red blood cells are less than 2. Peritoneal fluid culture came back positive for Staph epi. PROBLEMS/PLAN: 1. Peritonitis: Patient is doing very well and peritonitis is resolving. He was given vancomycin intravenously and 1 dose was given intraperitoneally a couple of days ago. Today we will give him 1 more dose of vancomycin 1 gram intraperitoneally and then he can be discharged to home. We can stop the cefepime as he does not need that any more. The patient will receive further vancomycin as an outpatient. He does not need any other antibiotic at discharge. 2. End-stage renal disease: Patient has been receiving peritoneal dialysis here with CAPD. He will resume his regular dialysis with the machine at night tonight. 3. Hypertension: Blood pressure very well controlled and he is currently not on any anti-hypertensive medication. 4. Hypokalemia: This is nutritional and potassium will be replaced. His diet is being changed to a regular diet. 5. Disposition: From a renal standpoint the patient can be discharged to home and he will follow up in the outpatient dialysis clinic. Patient understands to come back on Tuesday for next dose of intraperitoneal vancomycin.
--- NOTE | 2020-06-23 18:29 | DS.PDOC ---
Discharge Summary General Date of Admission Jun 20, 2020 at 19:26 Date of Discharge 06/23/2020 Attending Physician: KHANG MASON MD Discharge Summary PROCEDURES PERFORMED DURING STAY: None ADMITTING DIAGNOSES: Peritonitis DISCHARGE DIAGNOSES: Staph epi peritonitis ESRD on PD Hypertension. Coronary artery disease with prior DC. Secondary hyperparathyroidism. Hyperlipidemia. History of congestive heart failure. COMPLICATIONS/CHIEF COMPLAINT: Peritonitis. HISTORY OF PRESENT ILLNESS: 79-year-old gentleman with known history of end-stage renal disease on PD ho presented to the ED with severe abdominal pain. HOSPITAL COURSE: CT scan of abdomen and pelvis done in the emergency room did not show any other acute pathology, and his PD fluids had a leukoctyosis that confirmed peritonitis and he was started on vanc/cefepime with eventual culture growing methicillin resistant staph epi. He was treated with cefepime for 3 days and is now being discharged home and will be dosed vancomycin per nephrology in the outpatient setting to complete the course. DISCHARGE MEDICATIONS: Please see below. ALLERGIES: Please see below. PHYSICAL EXAMINATION ON DISCHARGE: VITAL SIGNS: Please see below. GENERAL: alert and oriented, in no apparent distress, pleasant and conversant in full sentences. HEENT: NCAT, EOMI, MMM NECK: The patient has no noted JVD. No adenopathy is appreciated. No thyromegaly CHEST/LUNGS: Lungs are clear bilaterally without rhonchi, rales, or wheezes. There is no subcutaneous air appreciated. There is no tenderness to the chest wall. HEART: Regular rate and rhythm. No murmurs, rubs, or gallops are appreciated. Distal pulses are 2+. No carotid bruits appreciated. ABDOMEN: Normoactive bowel sounds, nontender today. PD catheter insertion is c lean/dry/intact. EXTREMITIES: No peripheral edema. There is no focal long bone tenderness or deformity. SKIN: The patients skin is warm and dry, without rashes or lesions. PSYCHIATRIC: AAO x 3, normal mood/affect NEUROLOGIC: No obvious focal deficits. LABORATORY DATA: Please see below. IMAGING: CT A/P: Liver: Normal. No mass. Gallbladder and bile ducts: Normal. No calcified stones. No ductal dilation. Pancreas: Normal. No ductal dilation. Spleen: Normal. No splenomegaly. Adrenal glands: Normal. No mass. Kidneys and ureters: Multiple bilateral renal cysts without obvious complex features. Correlation with ultrasound suggested if clinically desired. Stomach and bowel: Diverticulosis coli without diverticulitis. Boggy appearance of the distal transverse, left and sigmoid colon may be related to incomplete distention. Clinical correlation to exclude changes related to colitis suggested. Appendix: No evidence of appendicitis. Intraperitoneal space: There is a small amount of free intraperitoneal fluid present. Finding consistent with known history of peritoneal dialysis. Small amount of intraperitoneal air may be postprocedural. Clinical correlation to exclude infection suggested. Vasculature: The aortoiliac vessels demonstrate mild atherosclerotic calcification. Lymph nodes: Unremarkable. No enlarged lymph nodes. Urinary bladder: Unremarkable as visualized. Reproductive: Status post prostatectomy. Bones/joints: Unremarkable. No acute fracture. Soft tissues: Bilateral inguinal hernias without incarceration. IMPRESSION: 1. There is a small amount of free intraperitoneal fluid present. Finding consistent with known history of peritoneal dialysis. Small amount of intraperitoneal air may be postprocedural. Clinical correlation to exclude infection suggested. 2. Multiple bilateral renal cysts without obvious complex features. Correlation with ultrasound suggested if clinically desired. 3. Diverticulosis coli without diverticulitis. 4. Bilateral inguinal hernias without incarceration. 5. Boggy appearance of the distal transverse, left and sigmoid colon may be related to incomplete distention. Clinical correlation to exclude changes related to colitis suggested. CXR: no acute disease PROGNOSIS: Good ACTIVITY: As tolerated DIET: Renal diet DISCHARGE PLAN: Home DISPOSITION: 01 Home, Self-Care. DISCHARGE INSTRUCTIONS: to follow up with nephrology ITEMS TO FOLLOWUP ON ON OUTPATIENT: Peritonitis resolution ESRD on PD DISCHARGE CONDITION: Stable TIME SPENT ON DISCHARGE: 50 minutes. Vital Signs/I&Os Vital Signs Date Time Temp Pulse Resp B/P (MAP) Pulse Ox O2 Delivery O2 Flow Rate FiO2 06/23/20 08:00 97.2 68 18 132/62 (85) 95 Room Air I&O- Last 24 Hours up to 6 AM 06/23/20 06:00 Intake Total 24207 ml Output Total 33053 ml Balance 100 ml Laboratory Data Labs 24H Laboratory Tests 2 06/23/20 04:35: Nucleated Red Blood Cells % (auto) 0.0 06/23/20 04:36: Anion Gap 10, Glomerular Filtration Rate 6.8L, Calcium Level 9.0, Total Bilirubin 0.4, Aspartate Amino Transf (AST/SGOT) 12, Alanine Aminotransferase (ALT/SGPT) 24, Alkaline Phosphatase 46, Total Protein 6.5, Albumin 2.2L, Albumin/Globulin Ratio 0.5 06/23/20 05:13: Body Fluid Source PERITONEAL DIALYSATE, Body Fluid WBC (Auto) 40H, Body Fluid RBC (Auto) < 2, Body Fluid Mononuclear Cells % Auto 52.5H, Fluid Polymorphonuclear Cell % Auto 47.5H, Peritoneal Fluid Color COLORLESS, Peritoneal Fluid Appearance CLEAR CBC/BMP Laboratory Tests 06/23/20 04:35 06/23/20 04:36 Microbiology Microbiology 06/21/20 Gram Stain - Final, Complete 06/21/20 Body Fluid Culture - Final, Complete Staphylococcus Epidermidis 06/20/20 Respiratory Virus Panel (PCR) ([facility]) - Final, Complete 06/20/20 Blood Culture - Preliminary, Resulted No Growth after 48 hours. All Specime... 06/20/20 Blood Culture - Preliminary, Resulted No Growth after 48 hours. All Specime... Discharge Medications Scheduled Aspirin (Aspirin EC) 81 Mg Tab, 81 MG PO DAILY, (Reported) Bumetanide (Bumetanide) 2 Mg Tab, 2 MG PO DAILY, (Reported) Calcitriol (Calcitriol) 0.25 Mcg Cap, 0.25 MCG PO DAILY, (Reported) Cinacalcet HCl (Cinacalcet HCl) 60 Mg Tablet, 60 MG PO DAILY, (Reported) Ergocalciferol (Vitamin D2) (Vitamin D2) 50 Mcg Capsule, 2,000 UNIT PO DAILY, (Reported) Folic Acid/B Cplx/C/Selen/Zinc (Dialyvite 3,000 Tablet) 1 Tab Tab, 1 TAB PO DAILY, (Reported) [place]-3S/Dha/Epa/Fish Oil (Fish Oil [place]-3 Softgel) 1 Each Capsule.dr, 4 CAP PO DAILY, (Reported) Sevelamer Carbonate (Sevelamer Carbonate) 800 Mg Tab, 1 TAB PO DAILY, (Reported) Simvastatin (Simvastatin) 40 Mg Tablet, 20 MG PO QPM, (Reported) Allergies Coded Allergies: sodium bicarbonate (Verified Adverse Reaction, Unknown, rash, 06/20/20) KHANG MASON MD Jun 23, 2020 18:29
== END 2020-06-23 11:46 | disposition home or self-care (01) | DRG 867 ==
LOC: M ED 16:19 → M ED INP 19:26 → M PCU 06-21 01:05
PROVIDERS: ADMIT Internal Medicine; ATTEND Internal Medicine
PROC: 3E1M39Z Irrigation of Peritoneal Cavity using Dialysate, Percutaneous Approach (ICD-10-PCS; principal; 2020-06-20)
DX: T80.29XA Infection following other infusion, transfusion and therapeutic injection, initial encounter (principal); N18.6 End stage renal disease; K65.0 Generalized (acute) peritonitis; N25.81 Secondary hyperparathyroidism of renal origin; I13.2 Hypertensive heart and chronic kidney disease with heart failure and with stage 5 chronic kidney disease, or end stage renal disease; Y84.8 Other medical procedures as the cause of abnormal reaction of the patient, or of later complication, without mention of misadventure at the time of the procedure; I25.10 Atherosclerotic heart disease of native coronary artery without angina pectoris; I25.2 Old myocardial infarction; Z99.2 Dependence on renal dialysis; Z85.828 Personal history of other malignant neoplasm of skin; Z79.82 Long term (current) use of aspirin; Z79.899 Other long term (current) drug therapy; Z88.8 Allergy status to other drugs, medicaments and biological substances; E83.42 Hypomagnesemia; I50.9 Heart failure, unspecified; K59.00 Constipation, unspecified; E87.6 Hypokalemia; B95.8 Unspecified staphylococcus as the cause of diseases classified elsewhere

== ENCOUNTER → 2020-06-26 | Outpatient (CLI) | payer MEDICARE, BC ==
[~2020-06-26] MED LIST changes: -CEFEPIME HCL 1 GM in D5W MINI-BAG PLUS 50 ML IV SCH; +CINA30TA5 PO; +CINA60TA3 PO; +FISH13602 PO; +VITA200048 PO
--- NOTE | 2020-06-26 17:09 | REPVR ---
PROCEDURE INFORMATION: Exam: CT Head Without Contrast Exam date and time: 06/26/2020 4:56 PM Age: 79 years old Clinical indication: Altered mental status/memory loss TECHNIQUE: Imaging protocol: Computed tomography of the head without contrast. Radiation optimization: All CT scans at this facility use at least one of these dose optimization techniques: automated exposure control; mA and/or kV adjustment per patient size (includes targeted exams where dose is matched to clinical indication); or iterative reconstruction. COMPARISON: No relevant prior studies available. FINDINGS: Brain: There is no acute intracranial hemorrhage, cerebral edema, or midline shift. Chronic microvascular ischemic changes are seen in the periventricular white matter. Age-related cerebral and cerebellar volume loss is present. Cerebral ventricles: Moderate ex vacuo dilation of the lateral and third ventricles is noted. Bones/joints: No acute fracture. Paranasal sinuses: There is no acute sinusitis. Mastoid air cells: The mastoid air cells are clear. Orbital cavity: The included orbital structures are unremarkable. Vasculature: Atherosclerotic calcifications are seen involving the cavernous carotid arteries. Soft tissues: Unremarkable. IMPRESSION: 1. No acute intracranial abnormality. 2. Atrophy and chronic deep white matter ischemic changes. Electronically signed by: Omkar Fisher On 06/26/2020 17:08:45 PM
== END ==
LOC: M RAD 16:45
PROVIDERS: ATTEND Internal Medicine Nephrology
DX: R41.82 Altered mental status, unspecified (principal); I67.82 Cerebral ischemia; I65.23 Occlusion and stenosis of bilateral carotid arteries

== ENCOUNTER → 2020-07-22 | Outpatient (REF) | payer MEDICARE, BC | LOC: M LAB REF 18:39 | PROVIDERS: ATTEND Dermatology | DX: L57.0 Actinic keratosis (principal); L57.8 Other skin changes due to chronic exposure to nonionizing radiation ==

== ENCOUNTER → 2020-08-13 | Outpatient (CLI) | payer MEDICARE, BC ==
[2020-08-13 14:49] LABS: FOLATE > 24.0 NG/ML; VITAMIN B12 LEVEL 768 PG/ML
== END ==
LOC: M PLALAB 11:31
PROVIDERS: ATTEND Psychiatry & Neurology Neurology
DX: E03.9 Hypothyroidism, unspecified (principal); R41.3 Other amnesia; E53.8 Deficiency of other specified B group vitamins

== ENCOUNTER 2021-06-26 11:29 | Inpatient (IN) | payer MEDICARE, BC ==
[~2021-06-26] VITALS: Ht 177.8 cm; Wt 81.1 kg
[2021-06-26] MEDS ORDERED: ACETAMINOPHEN TAB 650MG DOSE (2X325MG) PO PRN (13:30)
[2021-06-26 13:32] VITALS: BP 136/68
[2021-06-26] MEDS ORDERED: ONDANSETRON 4MG/2ML VIAL IV PRN (14:00)
[2021-06-26 14:13] LABS: HEMATOCRIT 35.8 % (42.0-52.0); HEMOGLOBIN 12.6 g/dl (13.5-17.5); MEAN CORPUSCULAR HEMOGLOBIN 32.7 pg (27.0-33.0); MEAN CORPUSCULAR HGB CONC 35.2 g/dl (32.0-36.5); PLATELET COUNT, AUTOMATED 202 10^3/uL (150-450); RED BLOOD COUNT 3.85 10^6/uL (4.30-6.10); WHITE BLOOD COUNT 25.4 10^3/uL (4.0-10.0)
[2021-06-26 14:22] LABS: INR 1.26; PROTHROMBIN TIME 16.2 SECONDS (12.7-14.5)
[2021-06-26] MEDS: PANTOPRAZOLE 40MG VIAL (C9113 PER 1) IV SCH ×2 (14:26→21:01)
[2021-06-26] MEDS: SUCRALFATE SUSP 1GM/10ML UD PO SCH ×3 (14:26→23:45)
[2021-06-26 15:04] LABS: ALBUMIN 2.6 GM/DL (3.2-5.2); BILIRUBIN,TOTAL 0.7 MG/DL (0.2-1.0); CALCIUM LEVEL 10.1 MG/DL (8.8-10.2); CREATININE FOR GFR 10.9 MG/DL (0.70-1.30); GLOMERULAR FILTRATION RATE 4.9 (>42); TOTAL PROTEIN 7.9 GM/DL (6.4-8.2)
[2021-06-26] MEDS ORDERED: AMLO1TAB25 PO (15:16)
[2021-06-26] MEDS ORDERED: D31000TA2 PO (15:16)
[2021-06-26] MEDS ORDERED: DONE10TA90 PO (15:16)
[2021-06-26] MEDS ORDERED: LORA10TA3 PO (15:16)
[2021-06-26] MEDS ORDERED: HOME MED LIST COMPLETE! XX SCH (15:20)
[2021-06-26 15:39] LABS: AMYLASE 62 U/L (25-115); LIPASE 63 U/L (73-393)
[2021-06-26] MEDS: PIPERACILLIN/TAZOBACTAM SOD 2.25 GM in D5W MINI-BAG PLUS 50 ML IV SCH ×2 (15:45→23:45)
[2021-06-26 16:00] VITALS: BP 121/83
[2021-06-26] MEDS: KCL 10MEQ/100ML SWI (KRUN) 10 MEQ in IV 1 EA IV SCH ×2 (16:10→17:34)
[2021-06-26] MEDS ORDERED: POTASSIUM CHLORIDE INJ 40 MEQ in NS 1,000 ML IV SCH (18:00)
[2021-06-26 18:37] LABS: HEMOGLOBIN 11.8 g/dl (13.5-17.5)
[2021-06-26 19:18] LABS: CALCIUM LEVEL 9.6 MG/DL (8.8-10.2); GLOMERULAR FILTRATION RATE 4.8 (>42); POTASSIUM SERUM 3.6 MEQ/L (3.5-5.1)
[2021-06-26 19:50] VITALS: BP 129/68
[2021-06-26] MEDS: NS 1,000 ML IV SCH (22:37)
[2021-06-26 22:47] LABS: SPEC. GRAVITY BODY FLUIDS 1.007 (NOT ESTABLISHED)
[2021-06-26 22:55] LABS: APPEARANCE, BODY FLUID HAZY (CLEAR); ASCITES FL COLOR PALE YELLOW (COLORLESS); SOURCE, BODY FLUID ASCITES
[2021-06-26 23:00] LABS: SOURCE, BODY FLUID ALBUMIN ASCITES
[2021-06-26 23:12] LABS: SOURCE, BODY FLUID GLUCOSE ASCITES; SOURCE, BODY FLUID TOT PROTEIN ASCITES; TOTAL PROTEIN, BODY FLUID 0.3 G/DL (NOT ESTABLISHED)
[2021-06-27 00:24] LABS: HEMATOCRIT 30.6 % (42.0-52.0); HEMOGLOBIN 10.8 g/dl (13.5-17.5)
[2021-06-27 00:31] VITALS: BP 108/55
[2021-06-27 04:00] VITALS: BP 112/56
[2021-06-27 05:29] LABS: BASO % 0.1 % (0.0-1.0); EOS % 0.2 % (0.0-3.0); HEMATOCRIT 29.3 % (42.0-52.0); HEMOGLOBIN 10.3 g/dl (13.5-17.5); LYMPH # 1.6 10^3/uL (1.5-5.0); LYMPH % 10.5 % (24.0-44.0); MEAN CORPUSCULAR HGB CONC 35.2 g/dl (32.0-36.5); MEAN CORPUSCULAR VOLUME 93.9 fl (80.0-96.0); MONO # 0.9 10^3/uL (0.0-0.8); MONO % 5.6 % (2.0-8.0); NEUTROPHILS # 12.7 10^3/uL (1.5-8.5); NEUTROPHILS % 83.1 % (36.0-66.0); PLATELET COUNT, AUTOMATED 144 10^3/uL (150-450); RED BLOOD COUNT 3.12 10^6/uL (4.30-6.10); WHITE BLOOD COUNT 15.3 10^3/uL (4.0-10.0)
[2021-06-27 05:45] LABS: ALBUMIN 2.2 GM/DL (3.2-5.2); BILIRUBIN,TOTAL 0.5 MG/DL (0.2-1.0); CALCIUM LEVEL 8.8 MG/DL (8.8-10.2); CREATININE FOR GFR 11.1 MG/DL (0.70-1.30); GLOMERULAR FILTRATION RATE 4.8 (>42); MAGNESIUM LEVEL 1.7 MG/DL (1.8-2.4); POTASSIUM SERUM 3.6 MEQ/L (3.5-5.1); TOTAL PROTEIN 5.6 GM/DL (6.4-8.2)
[2021-06-27] MEDS: SUCRALFATE SUSP 1GM/10ML UD PO SCH ×3 (06:22→18:12)
[2021-06-27] MEDS ORDERED: MAG SULF 1GM/100ML (MAG RUN) 1 GM in IV 1 EA IV ONE (07:00)
[2021-06-27 08:00] VITALS: BP 139/67
[2021-06-27] MEDS: PIPERACILLIN/TAZOBACTAM SOD 2.25 GM in D5W MINI-BAG PLUS 50 ML IV SCH ×2 (08:22→16:10)
[2021-06-27] MEDS: KCL 10MEQ/100ML SWI (KRUN) 10 MEQ in IV 1 EA IV SCH ×2 (08:23→10:45)
[2021-06-27] MEDS: PANTOPRAZOLE 40MG VIAL (C9113 PER 1) IV SCH ×2 (08:23→22:24)
[2021-06-27] MEDS: NS 1,000 ML IV SCH (10:55)
[2021-06-27 12:28] LABS: APPEARANCE, BODY FLUID CLEAR (CLEAR); PERITONEAL DIALYSATE FL COLOR COLORLESS (COLORLESS); SOURCE, BODY FLUID PERITONEAL DIALYSATE
[2021-06-27 13:26] LABS: HEMATOCRIT 29.5 % (42.0-52.0); HEMOGLOBIN 10.3 g/dl (13.5-17.5)
[2021-06-27] MEDS: OMEGA-3 1000MG CAPSULE PO SCH (14:39)
[2021-06-27] MEDS: VITAMIN D 1,000 INTERNATIONAL UNITS TABLET PO SCH (14:40)
[2021-06-27] MEDS: DONEPEZIL 5 MG TAB PO SCH (14:40)
[2021-06-27] MEDS: LORATADINE 10 MG TAB PO SCH (14:40)
[2021-06-27 16:00] VITALS: BP 149/65
[2021-06-27 18:12] LABS: HEMATOCRIT 29.2 % (42.0-52.0); HEMOGLOBIN 10.2 g/dl (13.5-17.5)
[2021-06-27] MEDS: SIMVASTATIN 20 MG TAB PO SCH (22:24)
[2021-06-28] VITALS: BP 135/62
[2021-06-28] MEDS: PIPERACILLIN/TAZOBACTAM SOD 2.25 GM in D5W MINI-BAG PLUS 50 ML IV SCH ×3 (00:11→17:02)
[2021-06-28 00:19] LABS: HEMATOCRIT 28.2 % (42.0-52.0); HEMOGLOBIN 9.9 g/dl (13.5-17.5)
[2021-06-28 05:20] LABS: BASO % 0.3 % (0.0-1.0); EOS # 0.3 10^3/uL (0.0-0.5); EOS % 3.5 % (0.0-3.0); HEMOGLOBIN 9.9 g/dl (13.5-17.5); LYMPH # 1.5 10^3/uL (1.5-5.0); LYMPH % 15.5 % (24.0-44.0); MEAN CORPUSCULAR HEMOGLOBIN 33.1 pg (27.0-33.0); MEAN CORPUSCULAR HGB CONC 35.4 g/dl (32.0-36.5); MEAN CORPUSCULAR VOLUME 93.6 fl (80.0-96.0); MONO # 0.6 10^3/uL (0.0-0.8); MONO % 5.8 % (2.0-8.0); NEUTROPHILS # 7.1 10^3/uL (1.5-8.5); NEUTROPHILS % 74.5 % (36.0-66.0); PLATELET COUNT, AUTOMATED 139 10^3/uL (150-450); RED BLOOD COUNT 2.99 10^6/uL (4.30-6.10); WHITE BLOOD COUNT 9.5 10^3/uL (4.0-10.0)
[2021-06-28 05:44] LABS: ALBUMIN 1.8 GM/DL (3.2-5.2); BILIRUBIN,TOTAL 0.6 MG/DL (0.2-1.0); CREATININE FOR GFR 9.85 MG/DL (0.70-1.30); GLOMERULAR FILTRATION RATE 5.5 (>42); MAGNESIUM LEVEL 2.1 MG/DL (1.8-2.4); POTASSIUM SERUM 3.3 MEQ/L (3.5-5.1); TOTAL PROTEIN 6.2 GM/DL (6.4-8.2)
[2021-06-28] MEDS: SUCRALFATE SUSP 1GM/10ML UD PO SCH ×3 (06:39→13:11)
[2021-06-28] MEDS: NS 1,000 ML IV SCH (06:39)
[2021-06-28 07:46] LABS: SOURCE, BODY FLUID PERITONEAL DIALYSATE
[2021-06-28 07:47] LABS: APPEARANCE, BODY FLUID CLEAR (CLEAR); PERITONEAL DIALYSATE FL COLOR COLORLESS (COLORLESS)
[2021-06-28 07:50] VITALS: BP 130/61
[2021-06-28] MEDS ORDERED: POTASSIUM CHLORIDE 10MEQ SR TABLET PO ONE (08:00)
[2021-06-28] MEDS: PANTOPRAZOLE 40MG VIAL (C9113 PER 1) IV SCH ×2 (08:36→20:47)
[2021-06-28] MEDS: OMEGA-3 1000MG CAPSULE PO SCH (08:36)
[2021-06-28] MEDS: DONEPEZIL 5 MG TAB PO SCH (08:36)
[2021-06-28] MEDS: LORATADINE 10 MG TAB PO SCH (08:36)
[2021-06-28] MEDS: VITAMIN D 1,000 INTERNATIONAL UNITS TABLET PO SCH (08:36)
[2021-06-28] MEDS: ASPIRIN 81MG ENTERIC TABLET PO SCH (10:05)
[2021-06-28 16:00] VITALS: BP 142/65
[2021-06-28] MEDS: LACTOBACILLUS ACIDOPHILUS CAP (BACID) PO SCH ×2 (17:03→20:47)
[2021-06-28 20:00] VITALS: BP 135/85
[2021-06-28] MEDS: SIMVASTATIN 20 MG TAB PO SCH (20:47)
[2021-06-29] MEDS: PIPERACILLIN/TAZOBACTAM SOD 2.25 GM in D5W MINI-BAG PLUS 50 ML IV SCH (00:24)
[2021-06-29] MEDS: NS 1,000 ML IV SCH (01:48)
[2021-06-29 04:00] VITALS: BP 151/65
[2021-06-29 06:02] LABS: BASO % 0.4 % (0.0-1.0); EOS # 0.4 10^3/uL (0.0-0.5); HEMATOCRIT 28.9 % (42.0-52.0); HEMOGLOBIN 10.1 g/dl (13.5-17.5); LYMPH # 1.5 10^3/uL (1.5-5.0); MEAN CORPUSCULAR HEMOGLOBIN 32.8 pg (27.0-33.0); MEAN CORPUSCULAR HGB CONC 34.9 g/dl (32.0-36.5); MEAN CORPUSCULAR VOLUME 93.8 fl (80.0-96.0); MONO # 0.6 10^3/uL (0.0-0.8); NEUTROPHILS # 5.2 10^3/uL (1.5-8.5); NEUTROPHILS % 67.1 % (36.0-66.0); PLATELET COUNT, AUTOMATED 156 10^3/uL (150-450); RED BLOOD COUNT 3.08 10^6/uL (4.30-6.10); WHITE BLOOD COUNT 7.7 10^3/uL (4.0-10.0)
[2021-06-29 06:47] LABS: ALBUMIN 1.9 GM/DL (3.2-5.2); BILIRUBIN,TOTAL 0.5 MG/DL (0.2-1.0); CALCIUM LEVEL 8.5 MG/DL (8.8-10.2); GLOMERULAR FILTRATION RATE 6.1 (>42); MAGNESIUM LEVEL 1.9 MG/DL (1.8-2.4); POTASSIUM SERUM 3.3 MEQ/L (3.5-5.1); TOTAL PROTEIN 5.5 GM/DL (6.4-8.2)
[2021-06-29 07:47] VITALS: BP 131/62
[2021-06-29] MEDS: POTASSIUM CHLORIDE 10MEQ SR TABLET PO ONE ×2 (08:00→12:05)
[2021-06-29] MEDS: LACTOBACILLUS ACIDOPHILUS CAP (BACID) PO SCH ×5 (08:00→21:03)
[2021-06-29] MEDS ORDERED: DARBEPOETIN 100 MCG/0.5 ML *NON-DIALYSIS* SYRINGE (J0881) SC SCH (09:00)
[2021-06-29] MEDS: ASPIRIN 81MG ENTERIC TABLET PO SCH ×2 (09:00→12:03)
[2021-06-29] MEDS: AUGMENTIN 500 MG TAB PO SCH ×2 (09:00→21:03)
[2021-06-29] MEDS: PANTOPRAZOLE 40MG VIAL (C9113 PER 1) IV SCH ×2 (09:55→21:03)
[2021-06-29] MEDS ORDERED: PIPERACILLIN/TAZOBACTAM SOD 2.25 GM in D5W MINI-BAG PLUS 50 ML IV ONE (10:15)
[2021-06-29 11:56] LABS: APPEARANCE, BODY FLUID CLEAR (CLEAR); PERITONEAL DIALYSATE FL COLOR COLORLESS (COLORLESS); SOURCE, BODY FLUID PERITONEAL DIALYSATE
[2021-06-29] MEDS: VITAMIN D 1,000 INTERNATIONAL UNITS TABLET PO SCH (12:04)
[2021-06-29] MEDS: CINACALCET 30 MG TAB (SENSIPAR) PO SCH (12:05)
[2021-06-29] MEDS: OMEGA-3 1000MG CAPSULE PO SCH (12:06)
[2021-06-29] MEDS: CALCITRIOL 0.25 MCG CAP (S0169) PO SCH (12:06)
[2021-06-29] MEDS: LORATADINE 10 MG TAB PO SCH (12:07)
[2021-06-29] MEDS: DONEPEZIL 5 MG TAB PO SCH (12:07)
[2021-06-29 12:22] VITALS: BP 172/66
[2021-06-29 15:58] VITALS: BP 138/74
[2021-06-29 20:00] VITALS: BP 144/61
[2021-06-29] MEDS: SIMVASTATIN 20 MG TAB PO SCH (21:03)
[2021-06-29] MEDS ORDERED: VANCOMYCIN 1000MG/20ML VIAL IP ONE (22:00)
[2021-06-30 04:30] VITALS: BP 128/60
[2021-06-30 05:44] LABS: BASO % 0.4 % (0.0-1.0); EOS # 0.4 10^3/uL (0.0-0.5); EOS % 4.8 % (0.0-3.0); HEMATOCRIT 27.2 % (42.0-52.0); HEMOGLOBIN 9.6 g/dl (13.5-17.5); LYMPH % 24.4 % (24.0-44.0); MEAN CORPUSCULAR HEMOGLOBIN 33.4 pg (27.0-33.0); MEAN CORPUSCULAR HGB CONC 35.3 g/dl (32.0-36.5); MEAN CORPUSCULAR VOLUME 94.8 fl (80.0-96.0); MONO # 0.7 10^3/uL (0.0-0.8); NEUTROPHILS # 4.9 10^3/uL (1.5-8.5); NEUTROPHILS % 60.8 % (36.0-66.0); PLATELET COUNT, AUTOMATED 146 10^3/uL (150-450); RED BLOOD COUNT 2.87 10^6/uL (4.30-6.10); WHITE BLOOD COUNT 8.1 10^3/uL (4.0-10.0)
[2021-06-30 06:15] LABS: ALBUMIN 1.8 GM/DL (3.2-5.2); BILIRUBIN,TOTAL 0.5 MG/DL (0.2-1.0); CALCIUM LEVEL 8.7 MG/DL (8.8-10.2); CREATININE FOR GFR 8.62 MG/DL (0.70-1.30); GLOMERULAR FILTRATION RATE 6.4 (>42); MAGNESIUM LEVEL 1.7 MG/DL (1.8-2.4); POTASSIUM SERUM 3.2 MEQ/L (3.5-5.1); TOTAL PROTEIN 5.9 GM/DL (6.4-8.2)
[2021-06-30 08:00] VITALS: BP 128/62
[2021-06-30] MEDS: PANTOPRAZOLE 40MG VIAL (C9113 PER 1) IV SCH ×2 (08:06→21:07)
[2021-06-30] MEDS: DONEPEZIL 5 MG TAB PO SCH (08:07)
[2021-06-30] MEDS: LACTOBACILLUS ACIDOPHILUS CAP (BACID) PO SCH ×4 (08:07→21:06)
[2021-06-30] MEDS: CINACALCET 30 MG TAB (SENSIPAR) PO SCH (08:07)
[2021-06-30] MEDS: AUGMENTIN 500 MG TAB PO SCH ×2 (08:07→21:06)
[2021-06-30] MEDS: ASPIRIN 81MG ENTERIC TABLET PO SCH (08:07)
[2021-06-30] MEDS: CALCITRIOL 0.25 MCG CAP (S0169) PO SCH (08:08)
[2021-06-30] MEDS: LORATADINE 10 MG TAB PO SCH (08:08)
[2021-06-30] MEDS: OMEGA-3 1000MG CAPSULE PO SCH (08:08)
[2021-06-30] MEDS: VITAMIN D 1,000 INTERNATIONAL UNITS TABLET PO SCH (08:08)
[2021-06-30] MEDS ORDERED: POTASSIUM CHLORIDE 10MEQ SR TABLET PO ONE (11:15)
[2021-06-30 11:16] LABS: APPEARANCE, BODY FLUID CLEAR (CLEAR); PERITONEAL DIALYSATE FL COLOR COLORLESS (COLORLESS); SOURCE, BODY FLUID PERITONEAL DIALYSATE
[2021-06-30 16:00] VITALS: BP 150/68
[2021-06-30] MEDS: SIMVASTATIN 20 MG TAB PO SCH (21:06)
[2021-06-30] MEDS: POTASSIUM CHLORIDE 10MEQ SR TABLET PO SCH (21:07)
[2021-06-30 22:00] VITALS: BP 136/61
[2021-07-01 06:00] VITALS: BP 159/69
[2021-07-01 06:17] LABS: BASO # 0.1 10^3/uL (0.0-0.2); BASO % 0.6 % (0.0-1.0); EOS # 0.5 10^3/uL (0.0-0.5); HEMATOCRIT 28.2 % (42.0-52.0); MEAN CORPUSCULAR HEMOGLOBIN 33.3 pg (27.0-33.0); MEAN CORPUSCULAR HGB CONC 35.5 g/dl (32.0-36.5); MONO # 0.8 10^3/uL (0.0-0.8); MONO % 8.5 % (2.0-8.0); NEUTROPHILS # 5.7 10^3/uL (1.5-8.5); PLATELET COUNT, AUTOMATED 146 10^3/uL (150-450); WHITE BLOOD COUNT 9.1 10^3/uL (4.0-10.0)
[2021-07-01 06:52] LABS: ALBUMIN 1.9 GM/DL (3.2-5.2); BILIRUBIN,TOTAL 0.3 MG/DL (0.2-1.0); CALCIUM LEVEL 8.3 MG/DL (8.8-10.2); CREATININE FOR GFR 8.4 MG/DL (0.70-1.30); GLOMERULAR FILTRATION RATE 6.6 (>42); MAGNESIUM LEVEL 1.7 MG/DL (1.8-2.4); POTASSIUM SERUM 3.3 MEQ/L (3.5-5.1); TOTAL PROTEIN 6.1 GM/DL (6.4-8.2)
[2021-07-01 07:22] LABS: APPEARANCE, BODY FLUID CLEAR (CLEAR); PERITONEAL DIALYSATE FL COLOR COLORLESS (COLORLESS); SOURCE, BODY FLUID PERITONEAL DIALYSATE
[2021-07-01 09:11] VITALS: BP 130/61
[2021-07-01] MEDS: PANTOPRAZOLE 40MG VIAL (C9113 PER 1) IV SCH ×2 (09:16→22:00)
[2021-07-01] MEDS: LORATADINE 10 MG TAB PO SCH (09:17)
[2021-07-01] MEDS: OMEGA-3 1000MG CAPSULE PO SCH (09:17)
[2021-07-01] MEDS: VITAMIN D 1,000 INTERNATIONAL UNITS TABLET PO SCH (09:17)
[2021-07-01] MEDS: DONEPEZIL 5 MG TAB PO SCH (09:18)
[2021-07-01] MEDS: LACTOBACILLUS ACIDOPHILUS CAP (BACID) PO SCH ×4 (09:18→22:01)
[2021-07-01] MEDS: POTASSIUM CHLORIDE 10MEQ SR TABLET PO SCH ×2 (09:18→22:01)
[2021-07-01] MEDS: AUGMENTIN 500 MG TAB PO SCH ×2 (09:18→22:01)
[2021-07-01] MEDS: CALCITRIOL 0.25 MCG CAP (S0169) PO SCH (09:18)
[2021-07-01] MEDS: CINACALCET 30 MG TAB (SENSIPAR) PO SCH (09:18)
[2021-07-01] MEDS: ASPIRIN 81MG ENTERIC TABLET PO SCH (09:18)
[2021-07-01] MEDS ORDERED: POTASSIUM CHLORIDE 10MEQ SR TABLET PO ONE (10:00)
[2021-07-01] MEDS ORDERED: MAG SULF 1GM/100ML (MAG RUN) 1 GM in IV 1 EA IV ONE (10:00)
[2021-07-01 14:00] VITALS: BP 172/70
[2021-07-01 21:00] VITALS: BP 169/70
[2021-07-01] MEDS: SIMVASTATIN 20 MG TAB PO SCH (22:01)
[2021-07-02] VITALS (7 sets, daily range): BP systolic 125–150; BP diastolic 54–69
[2021-07-02 05:57] LABS: BASO % 0.5 % (0.0-1.0); EOS % 5.4 % (0.0-3.0); HEMATOCRIT 27.8 % (42.0-52.0); HEMOGLOBIN 9.7 g/dl (13.5-17.5); LYMPH % 23.2 % (24.0-44.0); MEAN CORPUSCULAR HEMOGLOBIN 32.8 pg (27.0-33.0); MEAN CORPUSCULAR HGB CONC 34.9 g/dl (32.0-36.5); MEAN CORPUSCULAR VOLUME 93.9 fl (80.0-96.0); MONO % 8.6 % (2.0-8.0); NEUTROPHILS % 61.2 % (36.0-66.0); PLATELET COUNT, AUTOMATED 147 10^3/uL (150-450); RED BLOOD COUNT 2.96 10^6/uL (4.30-6.10); WHITE BLOOD COUNT 8.8 10^3/uL (4.0-10.0)
[2021-07-02 05:58] LABS: EOS # 0.5 10^3/uL (0.0-0.5); LYMPH # 2.1 10^3/uL (1.5-5.0); MONO # 0.8 10^3/uL (0.0-0.8); NEUTROPHILS # 5.4 10^3/uL (1.5-8.5)
[2021-07-02 06:27] LABS: ALBUMIN 1.9 GM/DL (3.2-5.2); BILIRUBIN,TOTAL 0.3 MG/DL (0.2-1.0); CALCIUM LEVEL 8.2 MG/DL (8.8-10.2); CREATININE FOR GFR 8.3 MG/DL (0.70-1.30); GLOMERULAR FILTRATION RATE 6.7 (>42); POTASSIUM SERUM 3.6 MEQ/L (3.5-5.1)
[2021-07-02] MEDS: LACTOBACILLUS ACIDOPHILUS CAP (BACID) PO SCH ×4 (08:00→20:07)
[2021-07-02] MEDS ORDERED: fentaNYL 100 MCG/2 ML INJECTION As Ordered ONE ×2 (08:58→13:06)
[2021-07-02] MEDS ORDERED: diphenhydrAMINE 50MG/ML VIAL (J1200) As Ordered ONE (08:58)
[2021-07-02] MEDS ORDERED: LIDOCAINE 1% MDV 20ML VIAL As Ordered ONE ×2 (08:59→13:20)
[2021-07-02] MEDS ORDERED: MIDAZOLAM INJ 2MG/2ML VIAL (J2250 PER 1MG) As Ordered ONE ×2 (08:59→13:06)
[2021-07-02] MEDS ORDERED: ceFAZolin 2 GM/D5W 50 ML IV BAG (J0690 PER 500MG) As Ordered ONE (09:20)
[2021-07-02] MEDS ORDERED: NS 1,000 ML IV SCH ×2 (09:20→16:05)
[2021-07-02] MEDS ORDERED: ceFAZolin SOD 2 GM in IV 1 EA IV ONE (09:30)
[2021-07-02] MEDS: CINACALCET 30 MG TAB (SENSIPAR) PO SCH (10:56)
[2021-07-02] MEDS: AUGMENTIN 500 MG TAB PO SCH ×2 (10:56→20:07)
[2021-07-02] MEDS: OMEGA-3 1000MG CAPSULE PO SCH (10:56)
[2021-07-02] MEDS: ASPIRIN 81MG ENTERIC TABLET PO SCH (10:56)
[2021-07-02] MEDS: DONEPEZIL 5 MG TAB PO SCH (10:56)
[2021-07-02] MEDS: LORATADINE 10 MG TAB PO SCH (10:57)
[2021-07-02] MEDS: CALCITRIOL 0.25 MCG CAP (S0169) PO SCH (10:57)
[2021-07-02] MEDS: POTASSIUM CHLORIDE 10MEQ SR TABLET PO SCH ×2 (10:57→20:08)
[2021-07-02] MEDS: VITAMIN D 1,000 INTERNATIONAL UNITS TABLET PO SCH (10:58)
[2021-07-02] MEDS: PANTOPRAZOLE 40MG VIAL (C9113 PER 1) IV SCH (10:58)
[2021-07-02] MEDS ORDERED: ROCURONIUM BROMIDE 50 MG/5 ML VIAL As Ordered ONE (13:06)
[2021-07-02] MEDS ORDERED: propofoL 200 MG/20 ML VIAL As Ordered ONE (13:06)
[2021-07-02] MEDS ORDERED: dexameTHASONE 4 MG/ML 1ML VIAL (J1100 PER 1MG) As Ordered ONE (13:06)
[2021-07-02] MEDS ORDERED: LIDOCAINE 2% 100MG/5ML SDV (FOR ANES.) As Ordered ONE (13:06)
[2021-07-02] MEDS ORDERED: ONDANSETRON 4MG/2ML VIAL As Ordered ONE (13:06)
[2021-07-02] MEDS ORDERED: GLYCOPYRROLATE INJ 0.2 MG/ML 2 ML VIAL As Ordered ONE (14:58)
[2021-07-02] MEDS ORDERED: traMADol 50 MG TAB PO PRN (15:40)
[2021-07-02] MEDS ORDERED: fentaNYL 100 MCG/2 ML INJECTION IV PRN (16:05)
[2021-07-02] MEDS ORDERED: ONDANSETRON 4MG/2ML VIAL IV PRN (16:05)
[2021-07-02 16:59] LABS: MAGNESIUM LEVEL 1.6 MG/DL (1.7-2.2)
[2021-07-02] MEDS: SIMVASTATIN 20 MG TAB PO SCH (20:07)
[2021-07-03 02:00] VITALS: BP 155/59
[2021-07-03 06:00] VITALS: BP 156/61
[2021-07-03] MEDS ORDERED: SODIUM CHLORIDE 0.9% 1000ML IV PRN (07:20)
[2021-07-03 07:27] LABS: BASO % 0.1 % (0.0-1.0); HEMATOCRIT 29.3 % (42.0-52.0); HEMOGLOBIN 9.9 g/dl (13.5-17.5); LYMPH # 1.1 10^3/uL (1.5-5.0); LYMPH % 11.6 % (24.0-44.0); MEAN CORPUSCULAR HEMOGLOBIN 32.8 pg (27.0-33.0); MEAN CORPUSCULAR HGB CONC 33.8 g/dl (32.0-36.5); MONO # 0.6 10^3/uL (0.0-0.8); MONO % 6.6 % (2.0-8.0); NEUTROPHILS # 7.6 10^3/uL (1.5-8.5); NEUTROPHILS % 80.7 % (36.0-66.0); PLATELET COUNT, AUTOMATED 158 10^3/uL (150-450); RED BLOOD COUNT 3.02 10^6/uL (4.30-6.10); WHITE BLOOD COUNT 9.4 10^3/uL (4.0-10.0)
[2021-07-03] MEDS ORDERED: RISATAB3 PO (08:25)
[2021-07-03] MEDS ORDERED: POTA-136 PO (08:25)
[2021-07-03] MEDS ORDERED: PANTOPRAZOLE 40MG TAB (PROTONIX) PO SCH (09:00)
[2021-07-03] MEDS: LACTOBACILLUS ACIDOPHILUS CAP (BACID) PO SCH ×2 (09:19→12:05)
[2021-07-03 09:20] VITALS: BP 147/62
[2021-07-03] MEDS: DONEPEZIL 5 MG TAB PO SCH (09:20)
[2021-07-03] MEDS: POTASSIUM CHLORIDE 10MEQ SR TABLET PO SCH (09:20)
[2021-07-03] MEDS: CINACALCET 30 MG TAB (SENSIPAR) PO SCH (09:20)
[2021-07-03] MEDS: LORATADINE 10 MG TAB PO SCH (09:21)
[2021-07-03] MEDS: CALCITRIOL 0.25 MCG CAP (S0169) PO SCH (09:21)
[2021-07-03] MEDS: OMEGA-3 1000MG CAPSULE PO SCH (09:21)
[2021-07-03] MEDS: VITAMIN D 1,000 INTERNATIONAL UNITS TABLET PO SCH (09:21)
[2021-07-03] MEDS: ASPIRIN 81MG ENTERIC TABLET PO SCH (09:21)
[2021-07-03] MEDS: AUGMENTIN 500 MG TAB PO SCH (09:21)
[2021-07-03 10:00] VITALS: BP 147/62
[2021-07-03 13:36] LABS: ALBUMIN 2.1 GM/DL (3.2-5.2); BILIRUBIN,TOTAL 0.2 MG/DL (0.2-1.0); CALCIUM LEVEL 9.1 MG/DL (8.8-10.2); CREATININE FOR GFR 9.64 MG/DL (0.70-1.30); GLOMERULAR FILTRATION RATE 5.6 (>42); POTASSIUM SERUM 4.9 MEQ/L (3.5-5.1); TOTAL PROTEIN 6.3 GM/DL (6.4-8.2)
[2021-07-03 21:57] LABS: MAGNESIUM LEVEL 1.7 MG/DL (1.7-2.2)
== END 2021-07-03 16:29 | disposition home health service (06) | DRG 907 ==
LOC: M ED INP 12:52 → M PCU 13:02 → M MSPAV 06-30 16:00
PROVIDERS: ADMIT Internal Medicine Nephrology; ATTEND Internal Medicine
PROC: 3E1M39Z Irrigation of Peritoneal Cavity using Dialysate, Percutaneous Approach (ICD-10-PCS; 2021-06-26)
PROC: 0JH63XZ Insertion of Tunneled Vascular Access Device into Chest Subcutaneous Tissue and Fascia, Percutaneous Approach (ICD-10-PCS; 2021-07-02)
PROC: 02H633Z Insertion of Infusion Device into Right Atrium, Percutaneous Approach (ICD-10-PCS; 2021-07-02)
PROC: 0WPG03Z Removal of Infusion Device from Peritoneal Cavity, Open Approach (ICD-10-PCS; principal; 2021-07-02 09:30)
PROC: 5A1D70Z Performance of Urinary Filtration, Intermittent, Less than 6 Hours Per Day (ICD-10-PCS; 2021-07-03)
DX: T85.71XA Infection and inflammatory reaction due to peritoneal dialysis catheter, initial encounter (principal); N18.6 End stage renal disease; I12.0 Hypertensive chronic kidney disease with stage 5 chronic kidney disease or end stage renal disease; K92.2 Gastrointestinal hemorrhage, unspecified; E87.1 Hypo-osmolality and hyponatremia; N25.81 Secondary hyperparathyroidism of renal origin; K52.1 Toxic gastroenteritis and colitis; F03.90 Unspecified dementia, unspecified severity, without behavioral disturbance, psychotic disturbance, mood disturbance, and anxiety; I25.10 Atherosclerotic heart disease of native coronary artery without angina pectoris; I25.2 Old myocardial infarction; E87.6 Hypokalemia; B95.2 Enterococcus as the cause of diseases classified elsewhere; R53.1 Weakness; T36.95XA Adverse effect of unspecified systemic antibiotic, initial encounter; Z86.73 Personal history of transient ischemic attack (TIA), and cerebral infarction without residual deficits; Z99.2 Dependence on renal dialysis; Z85.46 Personal history of malignant neoplasm of prostate; E78.5 Hyperlipidemia, unspecified; Z20.822 Contact with and (suspected) exposure to COVID-19; Z79.82 Long term (current) use of aspirin; Z79.899 Other long term (current) drug therapy; Z88.8 Allergy status to other drugs, medicaments and biological substances

== ENCOUNTER 2021-09-07 10:42 | Inpatient (IN) | payer MEDICARE, BC ==
[~2021-09-07] VITALS: Ht 180.3 cm; Wt 71.2 kg
[~2021-09-07 10:42] MED LIST changes: +AMLO1TAB25 PO; +DONE10TA90 PO; +LORA10TA3 PO; +POTA-136 PO; +RISATAB3 PO; +VITA100093 PO
[2021-09-07 11:48] LABS: INR 1.15; PROTHROMBIN TIME 15.1 SECONDS (12.7-14.5)
[2021-09-07 11:49] LABS: BASO % 0.3 % (0.0-1.0); EOS # 0.1 10^3/uL (0.0-0.5); EOS % 0.6 % (0.0-3.0); HEMATOCRIT 38.2 % (42.0-52.0); HEMOGLOBIN 12.2 g/dl (13.5-17.5); LYMPH # 1.5 10^3/uL (1.5-5.0); LYMPH % 10.1 % (24.0-44.0); MEAN CORPUSCULAR HEMOGLOBIN 32.3 pg (27.0-33.0); MEAN CORPUSCULAR HGB CONC 31.9 g/dl (32.0-36.5); MEAN CORPUSCULAR VOLUME 101.1 fl (80.0-96.0); MONO % 6.4 % (2.0-8.0); NEUTROPHILS # 12.3 10^3/uL (1.5-8.5); NEUTROPHILS % 82.1 % (36.0-66.0); PLATELET COUNT, AUTOMATED 263 10^3/uL (150-450); RED BLOOD COUNT 3.78 10^6/uL (4.30-6.10)
[2021-09-07 12:09] LABS: CK-MB VALUE MASS < 1.0 NG/ML (<3.6); CPK CREATINE PHOSPHOKINASE 19 U/L (39-308); MB/CK RELATIVE INDEX 5.26 (< OR =4)
[2021-09-07 12:11] LABS: BILIRUBIN,DIRECT 0.1 MG/DL (0.0-0.2); BILIRUBIN,TOTAL 0.3 MG/DL (0.2-1.0); CALCIUM LEVEL 11.3 MG/DL (8.8-10.2); CREATININE FOR GFR 8.73 MG/DL (0.70-1.30); GLOMERULAR FILTRATION RATE 6.3 (>42); POTASSIUM SERUM 3.8 MEQ/L (3.5-5.1)
[2021-09-07 12:12] LABS: ALBUMIN 2.6 GM/DL (3.2-5.2); TOTAL PROTEIN 7.3 GM/DL (6.4-8.2)
[2021-09-07] MEDS ORDERED: NS 500 ML IV ONE (12:25)
[2021-09-07 13:34] LABS: CK-MB VALUE MASS < 1.0 NG/ML (<3.6); CPK CREATINE PHOSPHOKINASE 18 U/L (39-308); MB/CK RELATIVE INDEX 5.56 (< OR =4)
[2021-09-07 13:53] LABS: RSV AMPLIFICATION NEGATIVE (NEGATIVE)
[2021-09-07] MEDS ORDERED: MIRT-10 PO (14:24)
[2021-09-07] MEDS ORDERED: RENV0.8P PO (14:24)
[2021-09-07] MEDS ORDERED: SIMV20TA22 PO (14:37)
[2021-09-07] MEDS ORDERED: HOME MED LIST COMPLETE! XX SCH (14:40)
[2021-09-07 17:00] VITALS: BP 139/80
[2021-09-07 17:22] LABS: SPEC. GRAVITY BODY FLUIDS 1.028 (NOT ESTABLISHED)
[2021-09-07 17:30] LABS: ASCITES FL COLOR ORANGE (COLORLESS); SOURCE, BODY FLUID ASCITES
[2021-09-07 17:31] LABS: APPEARANCE, BODY FLUID CLOUDY (CLEAR)
[2021-09-07 17:39] LABS: SOURCE, BODY FLUID ALBUMIN ASCITES; SOURCE, BODY FLUID GLUCOSE ASCITES; SOURCE, BODY FLUID TOT PROTEIN ASCITES; TOTAL PROTEIN, BODY FLUID 4.2 G/DL (NOT ESTABLISHED)
[2021-09-07] MEDS: (RENVELA) SEVELAMER **CARBONate** 800 MG TAB PO SCH (17:52)
[2021-09-07] MEDS: SUCRALFATE SUSP 1GM/10ML UD PO SCH ×2 (17:52→20:57)
[2021-09-07] MEDS: PIPERACILLIN/TAZOBACTAM SOD 2.25 GM in D5W MINI-BAG PLUS 50 ML IV SCH (17:52)
[2021-09-07 18:56] VITALS: BP 143/74
[2021-09-07] MEDS: CINACALCET 30 MG TAB (SENSIPAR) PO SCH (20:57)
[2021-09-07] MEDS: PANTOPRAZOLE 40MG TAB (PROTONIX) PO SCH (20:57)
[2021-09-07] MEDS: DOCUSATE SODIUM 100MG CAPSULE PO SCH (20:57)
[2021-09-07 22:00] VITALS: BP 130/70
[2021-09-08] MEDS: PIPERACILLIN/TAZOBACTAM SOD 2.25 GM in D5W MINI-BAG PLUS 50 ML IV SCH ×3 (00:35→17:36)
[2021-09-08 06:00] VITALS: BP 144/73
[2021-09-08] MEDS ORDERED: SODIUM CHLORIDE 0.9% 1000ML IV PRN (07:00)
[2021-09-08] MEDS: SUCRALFATE SUSP 1GM/10ML UD PO SCH ×4 (07:30→20:41)
[2021-09-08] MEDS: (RENVELA) SEVELAMER **CARBONate** 800 MG TAB PO SCH ×3 (08:00→17:36)
[2021-09-08] MEDS ORDERED: PNEUMOCOCCAL VACCINE 0.5ML SYRINGE (PNEUMOVAX 23) IM ONE (09:00)
[2021-09-08 09:19] LABS: BASO # 0.1 10^3/uL (0.0-0.2); BASO % 0.5 % (0.0-1.0); EOS # 0.4 10^3/uL (0.0-0.5); EOS % 3.7 % (0.0-3.0); HEMATOCRIT 35.3 % (42.0-52.0); HEMOGLOBIN 11.6 g/dl (13.5-17.5); LYMPH # 1.6 10^3/uL (1.5-5.0); LYMPH % 16.6 % (24.0-44.0); MEAN CORPUSCULAR HEMOGLOBIN 32.6 pg (27.0-33.0); MEAN CORPUSCULAR HGB CONC 32.9 g/dl (32.0-36.5); MEAN CORPUSCULAR VOLUME 99.2 fl (80.0-96.0); MONO # 0.8 10^3/uL (0.0-0.8); MONO % 8.7 % (2.0-8.0); NEUTROPHILS # 6.6 10^3/uL (1.5-8.5); NEUTROPHILS % 70.1 % (36.0-66.0); PLATELET COUNT, AUTOMATED 216 10^3/uL (150-450); RED BLOOD COUNT 3.56 10^6/uL (4.30-6.10); WHITE BLOOD COUNT 9.4 10^3/uL (4.0-10.0)
[2021-09-08 09:41] LABS: C REACTIVE PROTEIN QUANTITATIV 14.4 MG/DL (0.00-0.30); CALCIUM LEVEL 10.4 MG/DL (8.8-10.2); CREATININE FOR GFR 10.1 MG/DL (0.70-1.30); GLOMERULAR FILTRATION RATE 5.3 (>42); POTASSIUM SERUM 3.5 MEQ/L (3.5-5.1)
[2021-09-08 09:55] LABS: ERYTHROCYTE SEDIMENTATION RATE 81 mm/hr (0-20)
[2021-09-08] MEDS: LACTOBACILLUS ACIDOPHILUS CAP (BACID) PO SCH (13:10)
[2021-09-08] MEDS: CINACALCET 30 MG TAB (SENSIPAR) PO SCH ×2 (13:10→20:41)
[2021-09-08] MEDS: MIRTAZAPINE 15 MG TAB PO SCH (13:10)
[2021-09-08] MEDS: ASPIRIN 81MG ENTERIC TABLET PO SCH (13:10)
[2021-09-08] MEDS: LORATADINE 10 MG TAB PO SCH (13:11)
[2021-09-08] MEDS: DONEPEZIL 5 MG TAB PO SCH (13:11)
[2021-09-08] MEDS: DOCUSATE SODIUM 100MG CAPSULE PO SCH ×2 (13:11→20:41)
[2021-09-08] MEDS: VITAMIN D 1,000 INTERNATIONAL UNITS TABLET PO SCH (13:11)
[2021-09-08 14:00] VITALS: BP 132/70
[2021-09-08] MEDS ORDERED: PANT40TA29 PO (15:11)
[2021-09-08] MEDS ORDERED: COLA100C5 PO (15:11)
[2021-09-08] MEDS ORDERED: RISATAB3 PO (15:11)
[2021-09-08] MEDS ORDERED: ZOSY1SOL4 IV (15:11)
[2021-09-08] MEDS ORDERED: SUCR1ORA PO (15:11)
[2021-09-08] MEDS ORDERED: PERCOCET 5MG/325MG TAB PO PRN (17:50)
[2021-09-08 18:00] VITALS: BP 169/77
[2021-09-08] MEDS: METOCLOPRAMIDE INJ 10MG/2ML VIAL (J2765 PER 1) IV SCH ×2 (18:56→20:42)
[2021-09-08 19:45] VITALS: BP 142/68
[2021-09-08] MEDS: PANTOPRAZOLE 40MG TAB (PROTONIX) PO SCH (20:41)
[2021-09-09] MEDS: PIPERACILLIN/TAZOBACTAM SOD 2.25 GM in D5W MINI-BAG PLUS 50 ML IV SCH ×2 (00:50→09:29)
[2021-09-09 06:00] VITALS: BP 132/62
[2021-09-09 06:40] LABS: BASO # 0.1 10^3/uL (0.0-0.2); BASO % 0.6 % (0.0-1.0); EOS # 0.4 10^3/uL (0.0-0.5); EOS % 4.8 % (0.0-3.0); HEMATOCRIT 33.3 % (42.0-52.0); HEMOGLOBIN 10.6 g/dl (13.5-17.5); LYMPH # 2.1 10^3/uL (1.5-5.0); LYMPH % 24.5 % (24.0-44.0); MEAN CORPUSCULAR HGB CONC 31.8 g/dl (32.0-36.5); MEAN CORPUSCULAR VOLUME 100.6 fl (80.0-96.0); MONO % 11.4 % (2.0-8.0); NEUTROPHILS # 4.9 10^3/uL (1.5-8.5); NEUTROPHILS % 58.3 % (36.0-66.0); PLATELET COUNT, AUTOMATED 212 10^3/uL (150-450); RED BLOOD COUNT 3.31 10^6/uL (4.30-6.10); WHITE BLOOD COUNT 8.4 10^3/uL (4.0-10.0)
[2021-09-09 06:57] LABS: CALCIUM LEVEL 9.4 MG/DL (8.8-10.2); CREATININE FOR GFR 6.85 MG/DL (0.70-1.30); GLOMERULAR FILTRATION RATE 8.4 (>42); POTASSIUM SERUM 3.9 MEQ/L (3.5-5.1)
[2021-09-09] MEDS ORDERED: VANCOMYCIN HCL 1,000 MG, VIAL MATE ADAPTER 1 EACH in NS 250 ML IV ONE (09:00)
[2021-09-09] MEDS ORDERED: CALCITRIOL 0.25 MCG CAP (S0169) PO SCH (09:00)
[2021-09-09] MEDS: SUCRALFATE SUSP 1GM/10ML UD PO SCH ×2 (09:29→12:52)
[2021-09-09] MEDS: LORATADINE 10 MG TAB PO SCH (09:30)
[2021-09-09] MEDS: METOCLOPRAMIDE INJ 10MG/2ML VIAL (J2765 PER 1) IV SCH ×2 (09:30→12:00)
[2021-09-09] MEDS: DONEPEZIL 5 MG TAB PO SCH (09:30)
[2021-09-09] MEDS: ASPIRIN 81MG ENTERIC TABLET PO SCH (09:30)
[2021-09-09] MEDS: LACTOBACILLUS ACIDOPHILUS CAP (BACID) PO SCH (09:30)
[2021-09-09] MEDS: DOCUSATE SODIUM 100MG CAPSULE PO SCH (09:30)
[2021-09-09] MEDS: MIRTAZAPINE 15 MG TAB PO SCH (09:30)
[2021-09-09] MEDS: (RENVELA) SEVELAMER **CARBONate** 800 MG TAB PO SCH ×2 (09:30→12:52)
[2021-09-09] MEDS: VITAMIN D 1,000 INTERNATIONAL UNITS TABLET PO SCH (09:30)
[2021-09-09] MEDS: CINACALCET 30 MG TAB (SENSIPAR) PO SCH (09:31)
[2021-09-09] MEDS ORDERED: VANCOMYCIN HCL 500 MG in D5W MINI-BAG PLUS 100 ML IV ONE (12:00)
[2021-09-09] MEDS ORDERED: E-Z-PAQUE 96% w/w SUSP 176GM BTL As Ordered ONE (13:54)
[2021-09-09] MEDS ORDERED: VARIBAR PUDDING 40% w/v 230ML TUBE As Ordered ONE (13:54)
[2021-09-09] MEDS ORDERED: VARIBAR NECTAR 40% w/v 240ML SUSP BTL As Ordered ONE (13:54)
[2021-09-09] MEDS ORDERED: BARIUM SULFATE 700 MG TABLET (E-Z-DISK) As Ordered ONE (13:55)
[2021-09-09 14:00] VITALS: BP 149/74
[2021-09-10] MEDS ORDERED: VANCOMYCIN HCL 1,000 MG, VIAL MATE ADAPTER 1 EACH in NS 250 ML IV SCH (16:00)
[2021-09-10] MEDS ORDERED: **VANCO AFTER HD** MISC XX SCH (16:00)
== END 2021-09-09 15:39 | DRG 371 ==
LOC: M ED 11:46 → M ED INP 14:41 → ENRESERV 15:54 → M MSPAV 17:00
PROVIDERS: ADMIT Internal Medicine; ATTEND General Practice
PROC: 0W9G3ZX Drainage of Peritoneal Cavity, Percutaneous Approach, Diagnostic (ICD-10-PCS; principal; 2021-09-07 16:00)
PROC: 5A1D70Z Performance of Urinary Filtration, Intermittent, Less than 6 Hours Per Day (ICD-10-PCS; 2021-09-08)
DX: K65.9 Peritonitis, unspecified (principal); N18.6 End stage renal disease; I13.2 Hypertensive heart and chronic kidney disease with heart failure and with stage 5 chronic kidney disease, or end stage renal disease; R18.8 Other ascites; E87.2 Acidosis; N25.81 Secondary hyperparathyroidism of renal origin; F03.90 Unspecified dementia, unspecified severity, without behavioral disturbance, psychotic disturbance, mood disturbance, and anxiety; I25.10 Atherosclerotic heart disease of native coronary artery without angina pectoris; E78.5 Hyperlipidemia, unspecified; Z66 Do not resuscitate; K74.60 Unspecified cirrhosis of liver; K59.00 Constipation, unspecified; E83.52 Hypercalcemia; I50.9 Heart failure, unspecified; D63.1 Anemia in chronic kidney disease; R53.1 Weakness; G47.00 Insomnia, unspecified; R13.10 Dysphagia, unspecified; Z86.73 Personal history of transient ischemic attack (TIA), and cerebral infarction without residual deficits; Z85.46 Personal history of malignant neoplasm of prostate; Z99.2 Dependence on renal dialysis; Z85.828 Personal history of other malignant neoplasm of skin; Z79.82 Long term (current) use of aspirin; Z79.899 Other long term (current) drug therapy

== ENCOUNTER 2021-09-09 14:25 | Inpatient (IN) | payer MEDICARE, BC ==
[~2021-09-09] VITALS: Ht 175.3 cm; Wt 68.0 kg
[~2021-09-09 14:25] MED LIST changes: +COLA100C5 PO; +MIRT-10 PO; +PANT40TA29 PO; +RENV0.8P PO; +SIMV20TA22 PO; +SUCR1ORA PO; +ZOSY1SOL4 IV
[2021-09-09 16:00] VITALS: BP 142/67
[2021-09-09] MEDS ORDERED: BISACODYL 10 MG SUPP PR PRN (16:20)
[2021-09-09] MEDS: (RENVELA) SEVELAMER **CARBONate** 800 MG TAB PO SCH (17:53)
[2021-09-09] MEDS: METOCLOPRAMIDE 5 MG TAB PO SCH ×2 (17:53→20:39)
[2021-09-09] MEDS: LACTOBACILLUS ACIDOPHILUS CAP (BACID) PO SCH ×2 (17:53→20:38)
[2021-09-09] MEDS: SUCRALFATE SUSP 1GM/10ML UD PO SCH ×2 (18:25→20:39)
[2021-09-09] MEDS: PIPERACILLIN/TAZOBACTAM SOD 2.25 GM in D5W MINI-BAG PLUS 50 ML IV SCH (18:25)
[2021-09-09 20:00] VITALS: BP 105/58
[2021-09-09] MEDS: CINACALCET 30 MG TAB (SENSIPAR) PO SCH (20:38)
[2021-09-09] MEDS: DOCUSATE SODIUM 100MG CAPSULE PO SCH (20:39)
[2021-09-09] MEDS: PANTOPRAZOLE 40MG TAB (PROTONIX) PO SCH (20:39)
[2021-09-09] MEDS: SENNA 8.6 MG TAB (SENOKOT) PO SCH (20:39)
[2021-09-09] MEDS: REMEDY PHYTOPLEX Z-GUARD PASTE 113GM TUBE (FROM STOREROOM PRODUCT) TOP SCH (20:42)
[2021-09-10] MEDS: PIPERACILLIN/TAZOBACTAM SOD 2.25 GM in D5W MINI-BAG PLUS 50 ML IV SCH ×3 (01:41→18:00)
[2021-09-10 06:00] VITALS: BP 126/69
[2021-09-10 06:24] LABS: BASO # 0.1 10^3/uL (0.0-0.2); BASO % 0.6 % (0.0-1.0); EOS # 0.5 10^3/uL (0.0-0.5); HEMATOCRIT 31.3 % (42.0-52.0); HEMOGLOBIN 10.3 g/dl (13.5-17.5); LYMPH # 2.1 10^3/uL (1.5-5.0); LYMPH % 25.4 % (24.0-44.0); MEAN CORPUSCULAR HEMOGLOBIN 32.5 pg (27.0-33.0); MEAN CORPUSCULAR HGB CONC 32.9 g/dl (32.0-36.5); MEAN CORPUSCULAR VOLUME 98.7 fl (80.0-96.0); MONO # 0.9 10^3/uL (0.0-0.8); MONO % 10.4 % (2.0-8.0); NEUTROPHILS # 4.7 10^3/uL (1.5-8.5); NEUTROPHILS % 57.1 % (36.0-66.0); PLATELET COUNT, AUTOMATED 198 10^3/uL (150-450); RED BLOOD COUNT 3.17 10^6/uL (4.30-6.10); WHITE BLOOD COUNT 8.2 10^3/uL (4.0-10.0)
[2021-09-10 06:48] LABS: BILIRUBIN,TOTAL 0.4 MG/DL (0.2-1.0); CALCIUM LEVEL 9.5 MG/DL (8.8-10.2); CREATININE FOR GFR 8.37 MG/DL (0.70-1.30); GLOMERULAR FILTRATION RATE 6.6 (>42); POTASSIUM SERUM 4.2 MEQ/L (3.5-5.1); TOTAL PROTEIN 6.1 GM/DL (6.4-8.2)
[2021-09-10] MEDS: CINACALCET 30 MG TAB (SENSIPAR) PO SCH ×2 (08:16→20:28)
[2021-09-10] MEDS: SUCRALFATE SUSP 1GM/10ML UD PO SCH ×4 (08:16→20:28)
[2021-09-10] MEDS: LORATADINE 10 MG TAB PO SCH (08:17)
[2021-09-10] MEDS: METOCLOPRAMIDE 5 MG TAB PO SCH ×4 (08:17→20:28)
[2021-09-10] MEDS: MIRTAZAPINE 15 MG TAB PO SCH (08:17)
[2021-09-10] MEDS: (RENVELA) SEVELAMER **CARBONate** 800 MG TAB PO SCH ×3 (08:17→18:01)
[2021-09-10] MEDS: DONEPEZIL 5 MG TAB PO SCH (08:17)
[2021-09-10] MEDS: LACTOBACILLUS ACIDOPHILUS CAP (BACID) PO SCH ×4 (08:17→20:28)
[2021-09-10] MEDS: VITAMIN D 1,000 INTERNATIONAL UNITS TABLET PO SCH (08:17)
[2021-09-10] MEDS: ASPIRIN 81MG ENTERIC TABLET PO SCH (08:17)
[2021-09-10] MEDS: ACETAMINOPHEN TAB 650MG DOSE (2X325MG) PO PRN (08:18)
[2021-09-10] MEDS: DOCUSATE SODIUM 100MG CAPSULE PO SCH ×2 (08:18→20:29)
[2021-09-10] MEDS: REMEDY PHYTOPLEX Z-GUARD PASTE 113GM TUBE (FROM STOREROOM PRODUCT) TOP SCH ×3 (08:20→20:29)
[2021-09-10] MEDS ORDERED: CALCITRIOL 0.25 MCG CAP (S0169) PO SCH (09:00)
[2021-09-10] MEDS ORDERED: SODIUM CHLORIDE 0.9% 1000ML IV PRN (09:00)
[2021-09-10] MEDS ORDERED: HOME MED LIST COMPLETE! XX SCH (10:25)
[2021-09-10] MEDS: LIDOCAINE 5% (LIDODERM) PATCH TD SCH (13:10)
[2021-09-10 14:00] VITALS: BP 108/66
[2021-09-10] MEDS ORDERED: **VANCO AFTER HD** MISC XX SCH (16:00)
[2021-09-10 20:00] VITALS: BP 145/69
[2021-09-10] MEDS: PANTOPRAZOLE 40MG TAB (PROTONIX) PO SCH (20:28)
[2021-09-10] MEDS: HEPARIN SOD (PORCINE) 5000UNITS/ML 1ML VIAL/SYRINGE SQ SCH (20:28)
[2021-09-10] MEDS: SENNA 8.6 MG TAB (SENOKOT) PO SCH (20:28)
[2021-09-10] MEDS: **NOTE PATIENT COMMENT** MISC XX SCH (20:29)
[2021-09-11] VITALS (8 sets, daily range): BP systolic 72–135; BP diastolic 50–69
[2021-09-11] MEDS: PIPERACILLIN/TAZOBACTAM SOD 2.25 GM in D5W MINI-BAG PLUS 50 ML IV SCH ×3 (01:32→18:11)
[2021-09-11 07:10] LABS: BASO # 0.1 10^3/uL (0.0-0.2); BASO % 0.7 % (0.0-1.0); EOS # 0.5 10^3/uL (0.0-0.5); EOS % 7.1 % (0.0-3.0); HEMATOCRIT 32.6 % (42.0-52.0); HEMOGLOBIN 10.4 g/dl (13.5-17.5); LYMPH % 26.6 % (24.0-44.0); MEAN CORPUSCULAR HEMOGLOBIN 32.3 pg (27.0-33.0); MEAN CORPUSCULAR HGB CONC 31.9 g/dl (32.0-36.5); MEAN CORPUSCULAR VOLUME 101.2 fl (80.0-96.0); MONO # 0.9 10^3/uL (0.0-0.8); MONO % 11.4 % (2.0-8.0); NEUTROPHILS % 53.5 % (36.0-66.0); PLATELET COUNT, AUTOMATED 213 10^3/uL (150-450); RED BLOOD COUNT 3.22 10^6/uL (4.30-6.10); WHITE BLOOD COUNT 7.4 10^3/uL (4.0-10.0)
[2021-09-11 07:27] LABS: CALCIUM LEVEL 9.9 MG/DL (8.8-10.2); CREATININE FOR GFR 6.53 MG/DL (0.70-1.30); GLOMERULAR FILTRATION RATE 8.8 (>42); POTASSIUM SERUM 4.5 MEQ/L (3.5-5.1); VANCOMYCIN RANDOM 19.1 UG/ML
[2021-09-11] MEDS: METOCLOPRAMIDE 5 MG TAB PO SCH ×4 (07:30→20:33)
[2021-09-11] MEDS: SUCRALFATE SUSP 1GM/10ML UD PO SCH ×5 (07:30→20:48)
[2021-09-11] MEDS: (RENVELA) SEVELAMER **CARBONate** 800 MG TAB PO SCH ×3 (08:00→18:10)
[2021-09-11] MEDS: LACTOBACILLUS ACIDOPHILUS CAP (BACID) PO SCH ×4 (08:00→20:33)
[2021-09-11] MEDS ORDERED: NS 500 ML IV ONE ×2 (08:40→09:35)
[2021-09-11] MEDS: DOCUSATE SODIUM 100MG CAPSULE PO SCH ×2 (09:00→20:35)
[2021-09-11] MEDS: MIDODRINE 5 MG TAB PO SCH ×3 (09:03→18:10)
[2021-09-11] MEDS: ACETAMINOPHEN TAB 650MG DOSE (2X325MG) PO PRN (09:05)
[2021-09-11 10:13] LABS: CK-MB VALUE MASS < 1.0 NG/ML (<3.6); CPK CREATINE PHOSPHOKINASE 13 U/L (39-308); MB/CK RELATIVE INDEX 7.69 (< OR =4)
[2021-09-11] MEDS: LORATADINE 10 MG TAB PO SCH (11:09)
[2021-09-11] MEDS: MIRTAZAPINE 15 MG TAB PO SCH (11:09)
[2021-09-11] MEDS: VITAMIN D 1,000 INTERNATIONAL UNITS TABLET PO SCH (11:09)
[2021-09-11] MEDS: ASPIRIN 81MG ENTERIC TABLET PO SCH (11:09)
[2021-09-11] MEDS: CALCITRIOL 0.25 MCG CAP (S0169) PO SCH (11:10)
[2021-09-11] MEDS: DONEPEZIL 5 MG TAB PO SCH (11:10)
[2021-09-11] MEDS: CINACALCET 30 MG TAB (SENSIPAR) PO SCH ×2 (11:10→20:33)
[2021-09-11] MEDS: HEPARIN SOD (PORCINE) 5000UNITS/ML 1ML VIAL/SYRINGE SQ SCH ×3 (11:10→20:48)
[2021-09-11] MEDS: LIDOCAINE 5% (LIDODERM) PATCH TD SCH (11:11)
[2021-09-11] MEDS: REMEDY PHYTOPLEX Z-GUARD PASTE 113GM TUBE (FROM STOREROOM PRODUCT) TOP SCH ×3 (11:12→20:34)
[2021-09-11] MEDS ORDERED: VANCOMYCIN HCL 750 MG, VIAL MATE ADAPTER 1 EACH in NS 250 ML IV SCH (16:00)
[2021-09-11] MEDS: PANTOPRAZOLE 40MG TAB (PROTONIX) PO SCH (20:33)
[2021-09-11] MEDS: **NOTE PATIENT COMMENT** MISC XX SCH (20:34)
[2021-09-11] MEDS: SENNA 8.6 MG TAB (SENOKOT) PO SCH (20:35)
[2021-09-12] MEDS: PIPERACILLIN/TAZOBACTAM SOD 2.25 GM in D5W MINI-BAG PLUS 50 ML IV SCH ×3 (01:39→17:09)
[2021-09-12 05:05] VITALS: BP 154/67
[2021-09-12 07:25] LABS: BASO # 0.1 10^3/uL (0.0-0.2); BASO % 0.7 % (0.0-1.0); EOS # 0.6 10^3/uL (0.0-0.5); EOS % 6.6 % (0.0-3.0); HEMATOCRIT 31.8 % (42.0-52.0); LYMPH # 2.1 10^3/uL (1.5-5.0); LYMPH % 23.3 % (24.0-44.0); MEAN CORPUSCULAR HEMOGLOBIN 31.7 pg (27.0-33.0); MEAN CORPUSCULAR HGB CONC 31.4 g/dl (32.0-36.5); NEUTROPHILS # 5.3 10^3/uL (1.5-8.5); NEUTROPHILS % 57.7 % (36.0-66.0); PLATELET COUNT, AUTOMATED 213 10^3/uL (150-450); RED BLOOD COUNT 3.15 10^6/uL (4.30-6.10); WHITE BLOOD COUNT 9.2 10^3/uL (4.0-10.0)
[2021-09-12] MEDS: SUCRALFATE SUSP 1GM/10ML UD PO SCH ×4 (07:30→20:24)
[2021-09-12] MEDS: CINACALCET 30 MG TAB (SENSIPAR) PO SCH ×2 (07:48→20:24)
[2021-09-12] MEDS: MIDODRINE 5 MG TAB PO SCH (07:49)
[2021-09-12] MEDS: DONEPEZIL 5 MG TAB PO SCH (07:49)
[2021-09-12] MEDS: MIRTAZAPINE 15 MG TAB PO SCH (07:50)
[2021-09-12] MEDS: ASPIRIN 81MG ENTERIC TABLET PO SCH (07:52)
[2021-09-12] MEDS: METOCLOPRAMIDE 5 MG TAB PO SCH ×4 (07:53→20:24)
[2021-09-12] MEDS: (RENVELA) SEVELAMER **CARBONate** 800 MG TAB PO SCH ×3 (07:54→17:08)
[2021-09-12] MEDS: HEPARIN SOD (PORCINE) 5000UNITS/ML 1ML VIAL/SYRINGE SQ SCH ×2 (07:58→20:24)
[2021-09-12] MEDS: LIDOCAINE 5% (LIDODERM) PATCH TD SCH ×2 (07:59→09:00)
[2021-09-12] MEDS: LACTOBACILLUS ACIDOPHILUS CAP (BACID) PO SCH ×4 (08:00→20:24)
[2021-09-12] MEDS: LORATADINE 10 MG TAB PO SCH (08:05)
[2021-09-12] MEDS: REMEDY PHYTOPLEX Z-GUARD PASTE 113GM TUBE (FROM STOREROOM PRODUCT) TOP SCH ×3 (08:05→20:29)
[2021-09-12] MEDS: VITAMIN D 1,000 INTERNATIONAL UNITS TABLET PO SCH (08:05)
[2021-09-12] MEDS: DOCUSATE SODIUM 100MG CAPSULE PO SCH ×2 (08:05→21:00)
[2021-09-12] MEDS ORDERED: SODIUM CHLORIDE 0.9% 1000ML IV PRN (08:10)
[2021-09-12] MEDS ORDERED: LIDOCAINE 1% SDV 5ML VIAL SC PRN (08:10)
[2021-09-12 08:21] LABS: CALCIUM LEVEL 9.5 MG/DL (8.8-10.2); CREATININE FOR GFR 8.47 MG/DL (0.70-1.30); GLOMERULAR FILTRATION RATE 6.5 (>42); POTASSIUM SERUM 4.3 MEQ/L (3.5-5.1)
[2021-09-12 14:10] VITALS: BP 137/63
[2021-09-12 20:00] VITALS: BP 124/57
[2021-09-12] MEDS: PANTOPRAZOLE 40MG TAB (PROTONIX) PO SCH (20:24)
[2021-09-12] MEDS: **NOTE PATIENT COMMENT** MISC XX SCH (20:29)
[2021-09-12] MEDS: SENNA 8.6 MG TAB (SENOKOT) PO SCH (21:00)
[2021-09-13] MEDS: PIPERACILLIN/TAZOBACTAM SOD 2.25 GM in D5W MINI-BAG PLUS 50 ML IV SCH ×3 (02:22→17:35)
[2021-09-13 06:00] VITALS: BP 103/52
[2021-09-13 07:39] LABS: BASO # 0.1 10^3/uL (0.0-0.2); BASO % 0.9 % (0.0-1.0); EOS # 0.6 10^3/uL (0.0-0.5); EOS % 8.1 % (0.0-3.0); HEMATOCRIT 30.6 % (42.0-52.0); LYMPH # 1.9 10^3/uL (1.5-5.0); LYMPH % 27.1 % (24.0-44.0); MEAN CORPUSCULAR HEMOGLOBIN 32.5 pg (27.0-33.0); MEAN CORPUSCULAR HGB CONC 32.7 g/dl (32.0-36.5); MEAN CORPUSCULAR VOLUME 99.4 fl (80.0-96.0); MONO # 0.8 10^3/uL (0.0-0.8); MONO % 11.6 % (2.0-8.0); NEUTROPHILS # 3.7 10^3/uL (1.5-8.5); NEUTROPHILS % 51.9 % (36.0-66.0); PLATELET COUNT, AUTOMATED 197 10^3/uL (150-450); RED BLOOD COUNT 3.08 10^6/uL (4.30-6.10)
[2021-09-13 08:27] LABS: CALCIUM LEVEL 9.5 MG/DL (8.8-10.2); CREATININE FOR GFR 6.38 MG/DL (0.70-1.30); GLOMERULAR FILTRATION RATE 9.1 (>42); POTASSIUM SERUM 3.8 MEQ/L (3.5-5.1)
[2021-09-13] MEDS: HEPARIN SOD (PORCINE) 5000UNITS/ML 1ML VIAL/SYRINGE SQ SCH ×2 (08:53→20:53)
[2021-09-13] MEDS: METOCLOPRAMIDE 5 MG TAB PO SCH ×4 (08:53→20:52)
[2021-09-13] MEDS: ASPIRIN 81MG ENTERIC TABLET PO SCH (08:53)
[2021-09-13] MEDS: LACTOBACILLUS ACIDOPHILUS CAP (BACID) PO SCH ×4 (08:53→20:52)
[2021-09-13] MEDS: MIRTAZAPINE 15 MG TAB PO SCH (08:53)
[2021-09-13] MEDS: DONEPEZIL 5 MG TAB PO SCH (08:53)
[2021-09-13] MEDS: CINACALCET 30 MG TAB (SENSIPAR) PO SCH ×2 (08:53→20:52)
[2021-09-13] MEDS: VITAMIN D 1,000 INTERNATIONAL UNITS TABLET PO SCH (08:53)
[2021-09-13] MEDS: LORATADINE 10 MG TAB PO SCH (08:53)
[2021-09-13] MEDS: DOCUSATE SODIUM 100MG CAPSULE PO SCH ×2 (08:54→20:47)
[2021-09-13] MEDS: LIDOCAINE 5% (LIDODERM) PATCH TD SCH (08:54)
[2021-09-13] MEDS: (RENVELA) SEVELAMER **CARBONate** 800 MG TAB PO SCH ×3 (08:54→17:35)
[2021-09-13] MEDS: SUCRALFATE SUSP 1GM/10ML UD PO SCH ×4 (08:54→20:52)
[2021-09-13] MEDS: REMEDY PHYTOPLEX Z-GUARD PASTE 113GM TUBE (FROM STOREROOM PRODUCT) TOP SCH ×3 (08:55→20:53)
[2021-09-13 14:00] VITALS: BP 121/56
[2021-09-13 20:00] VITALS: BP 124/61
[2021-09-13] MEDS: SENNA 8.6 MG TAB (SENOKOT) PO SCH (20:47)
[2021-09-13] MEDS: PANTOPRAZOLE 40MG TAB (PROTONIX) PO SCH (20:52)
[2021-09-13] MEDS: **NOTE PATIENT COMMENT** MISC XX SCH (20:53)
[2021-09-14] MEDS: PIPERACILLIN/TAZOBACTAM SOD 2.25 GM in D5W MINI-BAG PLUS 50 ML IV SCH ×2 (01:57→09:10)
[2021-09-14 06:00] VITALS: BP 144/66
[2021-09-14 07:46] LABS: BASO # 0.1 10^3/uL (0.0-0.2); BASO % 0.9 % (0.0-1.0); EOS # 0.5 10^3/uL (0.0-0.5); EOS % 7.3 % (0.0-3.0); HEMATOCRIT 34.4 % (42.0-52.0); HEMOGLOBIN 11.3 g/dl (13.5-17.5); LYMPH # 1.9 10^3/uL (1.5-5.0); LYMPH % 25.3 % (24.0-44.0); MEAN CORPUSCULAR HEMOGLOBIN 32.3 pg (27.0-33.0); MEAN CORPUSCULAR HGB CONC 32.8 g/dl (32.0-36.5); MEAN CORPUSCULAR VOLUME 98.3 fl (80.0-96.0); MONO # 0.8 10^3/uL (0.0-0.8); NEUTROPHILS # 4.1 10^3/uL (1.5-8.5); NEUTROPHILS % 54.8 % (36.0-66.0); PLATELET COUNT, AUTOMATED 223 10^3/uL (150-450); WHITE BLOOD COUNT 7.4 10^3/uL (4.0-10.0)
[2021-09-14 08:24] LABS: BLOOD UREA NITROGEN 18 MG/DL (7-18); CALCIUM LEVEL 9.7 MG/DL (8.8-10.2); CARBON DIOXIDE LEVEL 23 MEQ/L (21-32); CHLORIDE LEVEL 102 MEQ/L (98-107); CREATININE FOR GFR 8.75 MG/DL (0.70-1.30); GLOMERULAR FILTRATION RATE 6.3 (>42); GLUCOSE, FASTING 107 MG/DL (70-100); POTASSIUM SERUM 3.9 MEQ/L (3.5-5.1); SODIUM LEVEL 138 MEQ/L (136-145)
[2021-09-14] MEDS: DOCUSATE SODIUM 100MG CAPSULE PO SCH (09:00)
[2021-09-14] MEDS: LORATADINE 10 MG TAB PO SCH (09:10)
[2021-09-14] MEDS: MIRTAZAPINE 15 MG TAB PO SCH (09:10)
[2021-09-14] MEDS: SUCRALFATE SUSP 1GM/10ML UD PO SCH ×4 (09:10→20:39)
[2021-09-14] MEDS: ASPIRIN 81MG ENTERIC TABLET PO SCH (09:10)
[2021-09-14] MEDS: METOCLOPRAMIDE 5 MG TAB PO SCH ×4 (09:11→20:39)
[2021-09-14] MEDS: CINACALCET 30 MG TAB (SENSIPAR) PO SCH ×2 (09:11→20:40)
[2021-09-14] MEDS: DONEPEZIL 5 MG TAB PO SCH (09:11)
[2021-09-14] MEDS: LACTOBACILLUS ACIDOPHILUS CAP (BACID) PO SCH ×4 (09:11→20:39)
[2021-09-14] MEDS: CALCITRIOL 0.25 MCG CAP (S0169) PO SCH (09:11)
[2021-09-14] MEDS: (RENVELA) SEVELAMER **CARBONate** 800 MG TAB PO SCH ×3 (09:11→18:04)
[2021-09-14] MEDS: VITAMIN D 1,000 INTERNATIONAL UNITS TABLET PO SCH (09:11)
[2021-09-14] MEDS: REMEDY PHYTOPLEX Z-GUARD PASTE 113GM TUBE (FROM STOREROOM PRODUCT) TOP SCH ×3 (09:12→20:40)
[2021-09-14] MEDS: HEPARIN SOD (PORCINE) 5000UNITS/ML 1ML VIAL/SYRINGE SQ SCH ×2 (09:12→20:40)
[2021-09-14] MEDS: LIDOCAINE 5% (LIDODERM) PATCH TD SCH (09:13)
[2021-09-14 14:00] VITALS: BP 123/62
[2021-09-14 17:41] LABS: HEPATITIS B SURFACE ANTIGEN NEGATIVE (NEGATIVE)
[2021-09-14 17:50] LABS: HEPATITIS B SURFACE ANTIBODY POSITIVE (POSITIVE)
[2021-09-14 20:00] VITALS: BP 138/66
[2021-09-14] MEDS: PANTOPRAZOLE 40MG TAB (PROTONIX) PO SCH (20:39)
[2021-09-14] MEDS: **NOTE PATIENT COMMENT** MISC XX SCH (20:40)
[2021-09-14 21:14] LABS: HEPATITIS C VIRUS ABY INDEX 0.1 INDEX (<0.8)
[2021-09-15 06:00] VITALS: BP 142/68
[2021-09-15] MEDS ORDERED: SODIUM CHLORIDE 0.9% 1000ML IV PRN (06:00)
[2021-09-15 09:57] LABS: BASO # 0.1 10^3/uL (0.0-0.2); BASO % 0.7 % (0.0-1.0); EOS # 0.4 10^3/uL (0.0-0.5); EOS % 4.8 % (0.0-3.0); HEMATOCRIT 35.6 % (42.0-52.0); HEMOGLOBIN 11.4 g/dl (13.5-17.5); LYMPH # 1.5 10^3/uL (1.5-5.0); LYMPH % 17.3 % (24.0-44.0); MONO # 0.8 10^3/uL (0.0-0.8); NEUTROPHILS % 67.2 % (36.0-66.0); PLATELET COUNT, AUTOMATED 249 10^3/uL (150-450); RED BLOOD COUNT 3.56 10^6/uL (4.30-6.10); WHITE BLOOD COUNT 8.9 10^3/uL (4.0-10.0)
[2021-09-15] MEDS: LORATADINE 10 MG TAB PO SCH (10:14)
[2021-09-15] MEDS: ASPIRIN 81MG ENTERIC TABLET PO SCH (10:14)
[2021-09-15] MEDS: CINACALCET 30 MG TAB (SENSIPAR) PO SCH ×2 (10:14→20:25)
[2021-09-15] MEDS: (RENVELA) SEVELAMER **CARBONate** 800 MG TAB PO SCH ×3 (10:14→16:57)
[2021-09-15] MEDS: MIRTAZAPINE 15 MG TAB PO SCH (10:14)
[2021-09-15] MEDS: METOCLOPRAMIDE 5 MG TAB PO SCH (10:14)
[2021-09-15] MEDS: VITAMIN D 1,000 INTERNATIONAL UNITS TABLET PO SCH (10:14)
[2021-09-15] MEDS: HEPARIN SOD (PORCINE) 5000UNITS/ML 1ML VIAL/SYRINGE SQ SCH ×2 (10:16→20:26)
[2021-09-15] MEDS: SUCRALFATE SUSP 1GM/10ML UD PO SCH ×4 (10:16→20:26)
[2021-09-15] MEDS: LACTOBACILLUS ACIDOPHILUS CAP (BACID) PO SCH ×4 (10:16→20:25)
[2021-09-15] MEDS: REMEDY PHYTOPLEX Z-GUARD PASTE 113GM TUBE (FROM STOREROOM PRODUCT) TOP SCH ×3 (10:17→20:28)
[2021-09-15] MEDS: LIDOCAINE 5% (LIDODERM) PATCH TD SCH (10:17)
[2021-09-15 10:38] LABS: BLOOD UREA NITROGEN 25 MG/DL (7-18); CALCIUM LEVEL 9.7 MG/DL (8.8-10.2); CARBON DIOXIDE LEVEL 23 MEQ/L (21-32); CHLORIDE LEVEL 100 MEQ/L (98-107); GLOMERULAR FILTRATION RATE 4.8 (>42); GLUCOSE, FASTING 127 MG/DL (70-100); POTASSIUM SERUM 3.8 MEQ/L (3.5-5.1); SODIUM LEVEL 136 MEQ/L (136-145)
[2021-09-15 14:00] VITALS: BP 109/67
[2021-09-15 20:00] VITALS: BP 110/68
[2021-09-15] MEDS: PANTOPRAZOLE 40MG TAB (PROTONIX) PO SCH (20:26)
[2021-09-15] MEDS: **NOTE PATIENT COMMENT** MISC XX SCH (20:26)
[2021-09-16 06:10] VITALS: BP 116/66
[2021-09-16 06:59] LABS: BASO # 0.1 10^3/uL (0.0-0.2); BASO % 0.7 % (0.0-1.0); EOS # 0.4 10^3/uL (0.0-0.5); EOS % 5.7 % (0.0-3.0); HEMATOCRIT 32.6 % (42.0-52.0); HEMOGLOBIN 10.6 g/dl (13.5-17.5); LYMPH # 1.7 10^3/uL (1.5-5.0); LYMPH % 24.5 % (24.0-44.0); MEAN CORPUSCULAR HEMOGLOBIN 31.5 pg (27.0-33.0); MEAN CORPUSCULAR HGB CONC 32.5 g/dl (32.0-36.5); MONO # 0.9 10^3/uL (0.0-0.8); MONO % 13.5 % (2.0-8.0); NEUTROPHILS # 3.7 10^3/uL (1.5-8.5); NEUTROPHILS % 54.7 % (36.0-66.0); PLATELET COUNT, AUTOMATED 198 10^3/uL (150-450); RED BLOOD COUNT 3.36 10^6/uL (4.30-6.10); WHITE BLOOD COUNT 6.8 10^3/uL (4.0-10.0)
[2021-09-16 07:16] LABS: CALCIUM LEVEL 9.1 MG/DL (8.8-10.2); CREATININE FOR GFR 6.79 MG/DL (0.70-1.30); GLOMERULAR FILTRATION RATE 8.4 (>42); POTASSIUM SERUM 3.8 MEQ/L (3.5-5.1)
[2021-09-16] MEDS: SUCRALFATE SUSP 1GM/10ML UD PO SCH ×4 (07:28→21:00)
[2021-09-16] MEDS: LACTOBACILLUS ACIDOPHILUS CAP (BACID) PO SCH ×4 (07:28→21:00)
[2021-09-16] MEDS: VITAMIN D 1,000 INTERNATIONAL UNITS TABLET PO SCH (07:29)
[2021-09-16] MEDS: (RENVELA) SEVELAMER **CARBONate** 800 MG TAB PO SCH ×3 (07:29→17:22)
[2021-09-16] MEDS: CALCITRIOL 0.25 MCG CAP (S0169) PO SCH (07:29)
[2021-09-16] MEDS: CINACALCET 30 MG TAB (SENSIPAR) PO SCH ×2 (07:29→21:00)
[2021-09-16] MEDS: ASPIRIN 81MG ENTERIC TABLET PO SCH (07:29)
[2021-09-16] MEDS: HEPARIN SOD (PORCINE) 5000UNITS/ML 1ML VIAL/SYRINGE SQ SCH ×2 (07:29→21:00)
[2021-09-16] MEDS: LORATADINE 10 MG TAB PO SCH (07:29)
[2021-09-16] MEDS: REMEDY PHYTOPLEX Z-GUARD PASTE 113GM TUBE (FROM STOREROOM PRODUCT) TOP SCH ×3 (07:30→21:04)
[2021-09-16] MEDS ORDERED: DONEPEZIL 5 MG TAB PO SCH (09:00)
[2021-09-16] MEDS: LIDOCAINE 5% (LIDODERM) PATCH TD SCH (11:20)
[2021-09-16 14:00] VITALS: BP 128/65
[2021-09-16] MEDS: METOCLOPRAMIDE 5 MG TAB PO PRN (20:31)
[2021-09-16] MEDS: PANTOPRAZOLE 40MG TAB (PROTONIX) PO SCH (21:00)
[2021-09-16] MEDS: **NOTE PATIENT COMMENT** MISC XX SCH (21:05)
[2021-09-16 21:17] VITALS: BP 135/63
[2021-09-17] MEDS ORDERED: SODIUM CHLORIDE 0.9% 1000ML IV PRN (06:00)
[2021-09-17 06:12] VITALS: BP 159/79
[2021-09-17 06:54] LABS: BASO # 0.1 10^3/uL (0.0-0.2); BASO % 0.6 % (0.0-1.0); EOS # 0.4 10^3/uL (0.0-0.5); EOS % 5.1 % (0.0-3.0); HEMATOCRIT 34.7 % (42.0-52.0); HEMOGLOBIN 11.2 g/dl (13.5-17.5); LYMPH # 2.2 10^3/uL (1.5-5.0); LYMPH % 26.2 % (24.0-44.0); MEAN CORPUSCULAR HEMOGLOBIN 31.8 pg (27.0-33.0); MEAN CORPUSCULAR HGB CONC 32.3 g/dl (32.0-36.5); MEAN CORPUSCULAR VOLUME 98.6 fl (80.0-96.0); MONO # 0.9 10^3/uL (0.0-0.8); MONO % 10.1 % (2.0-8.0); NEUTROPHILS # 4.8 10^3/uL (1.5-8.5); NEUTROPHILS % 57.5 % (36.0-66.0); PLATELET COUNT, AUTOMATED 237 10^3/uL (150-450); RED BLOOD COUNT 3.52 10^6/uL (4.30-6.10); WHITE BLOOD COUNT 8.4 10^3/uL (4.0-10.0)
[2021-09-17 07:18] LABS: CREATININE FOR GFR 9.08 MG/DL (0.70-1.30); POTASSIUM SERUM 3.6 MEQ/L (3.5-5.1)
[2021-09-17] MEDS: REMEDY PHYTOPLEX Z-GUARD PASTE 113GM TUBE (FROM STOREROOM PRODUCT) TOP SCH ×3 (09:00→20:45)
[2021-09-17] MEDS: LIDOCAINE 5% (LIDODERM) PATCH TD SCH (09:00)
[2021-09-17] MEDS: LACTOBACILLUS ACIDOPHILUS CAP (BACID) PO SCH ×4 (09:21→20:44)
[2021-09-17] MEDS: SUCRALFATE SUSP 1GM/10ML UD PO SCH ×4 (09:21→20:44)
[2021-09-17] MEDS: (RENVELA) SEVELAMER **CARBONate** 800 MG TAB PO SCH ×3 (09:22→18:14)
[2021-09-17] MEDS: ASPIRIN 81MG ENTERIC TABLET PO SCH (09:22)
[2021-09-17] MEDS: HEPARIN SOD (PORCINE) 5000UNITS/ML 1ML VIAL/SYRINGE SQ SCH ×2 (09:22→20:44)
[2021-09-17] MEDS: VITAMIN D 1,000 INTERNATIONAL UNITS TABLET PO SCH (09:22)
[2021-09-17] MEDS: LORATADINE 10 MG TAB PO SCH (09:22)
[2021-09-17] MEDS: CINACALCET 30 MG TAB (SENSIPAR) PO SCH ×2 (09:22→20:44)
[2021-09-17] MEDS ORDERED: ALTEPLASE 2MG/2ML VIAL XX ONE (14:00)
[2021-09-17 19:37] VITALS: BP 102/55
[2021-09-17] MEDS: PANTOPRAZOLE 40MG TAB (PROTONIX) PO SCH (20:44)
[2021-09-17] MEDS: **NOTE PATIENT COMMENT** MISC XX SCH (20:44)
[2021-09-18 05:47] VITALS: BP 115/65
[2021-09-18 08:24] LABS: BASO % 0.4 % (0.0-1.0); EOS # 0.4 10^3/uL (0.0-0.5); EOS % 4.2 % (0.0-3.0); HEMATOCRIT 33.4 % (42.0-52.0); HEMOGLOBIN 10.6 g/dl (13.5-17.5); LYMPH % 20.7 % (24.0-44.0); MEAN CORPUSCULAR HEMOGLOBIN 31.5 pg (27.0-33.0); MEAN CORPUSCULAR HGB CONC 31.7 g/dl (32.0-36.5); MEAN CORPUSCULAR VOLUME 99.1 fl (80.0-96.0); MONO % 10.4 % (2.0-8.0); NEUTROPHILS % 63.9 % (36.0-66.0); PLATELET COUNT, AUTOMATED 212 10^3/uL (150-450); RED BLOOD COUNT 3.37 10^6/uL (4.30-6.10); WHITE BLOOD COUNT 9.5 10^3/uL (4.0-10.0)
[2021-09-18] MEDS: SUCRALFATE SUSP 1GM/10ML UD PO SCH ×4 (08:27→21:15)
[2021-09-18] MEDS: CALCITRIOL 0.25 MCG CAP (S0169) PO SCH (08:28)
[2021-09-18] MEDS: (RENVELA) SEVELAMER **CARBONate** 800 MG TAB PO SCH ×3 (08:28→17:42)
[2021-09-18] MEDS: CINACALCET 30 MG TAB (SENSIPAR) PO SCH ×2 (08:28→21:15)
[2021-09-18] MEDS: LORATADINE 10 MG TAB PO SCH (08:28)
[2021-09-18] MEDS: VITAMIN D 1,000 INTERNATIONAL UNITS TABLET PO SCH (08:28)
[2021-09-18] MEDS: ASPIRIN 81MG ENTERIC TABLET PO SCH (08:28)
[2021-09-18] MEDS: METOCLOPRAMIDE 5 MG TAB PO PRN (08:28)
[2021-09-18] MEDS: LACTOBACILLUS ACIDOPHILUS CAP (BACID) PO SCH ×4 (08:28→21:15)
[2021-09-18] MEDS: HEPARIN SOD (PORCINE) 5000UNITS/ML 1ML VIAL/SYRINGE SQ SCH ×2 (08:29→21:15)
[2021-09-18] MEDS: LIDOCAINE 5% (LIDODERM) PATCH TD SCH (08:30)
[2021-09-18] MEDS: REMEDY PHYTOPLEX Z-GUARD PASTE 113GM TUBE (FROM STOREROOM PRODUCT) TOP SCH ×3 (08:30→21:16)
[2021-09-18] MEDS: ACETAMINOPHEN TAB 650MG DOSE (2X325MG) PO PRN (08:31)
[2021-09-18 08:47] LABS: CALCIUM LEVEL 9.4 MG/DL (8.8-10.2); CREATININE FOR GFR 5.67 MG/DL (0.70-1.30); GLOMERULAR FILTRATION RATE 10.4 (>42)
[2021-09-18 14:00] VITALS: BP 123/62
[2021-09-18] MEDS ORDERED: ONDANSETRON 4MG/2ML VIAL IV PRN (16:45)
[2021-09-18 20:00] VITALS: BP 146/70
[2021-09-18] MEDS: PANTOPRAZOLE 40MG TAB (PROTONIX) PO SCH (21:15)
[2021-09-18] MEDS: **NOTE PATIENT COMMENT** MISC XX SCH (21:15)
[2021-09-19] MEDS ORDERED: SODIUM CHLORIDE 0.9% 1000ML IV PRN (03:05)
[2021-09-19 06:00] VITALS: BP 110/66
[2021-09-19] MEDS: SUCRALFATE SUSP 1GM/10ML UD PO SCH ×4 (07:30→20:49)
[2021-09-19] MEDS: LACTOBACILLUS ACIDOPHILUS CAP (BACID) PO SCH ×4 (08:00→20:49)
[2021-09-19] MEDS: (RENVELA) SEVELAMER **CARBONate** 800 MG TAB PO SCH ×3 (08:00→17:47)
[2021-09-19] MEDS: LORATADINE 10 MG TAB PO SCH (09:52)
[2021-09-19] MEDS: HEPARIN SOD (PORCINE) 5000UNITS/ML 1ML VIAL/SYRINGE SQ SCH ×2 (09:52→20:49)
[2021-09-19] MEDS: VITAMIN D 1,000 INTERNATIONAL UNITS TABLET PO SCH (09:52)
[2021-09-19] MEDS: ACETAMINOPHEN TAB 650MG DOSE (2X325MG) PO PRN (09:53)
[2021-09-19] MEDS: ASPIRIN 81MG ENTERIC TABLET PO SCH (09:53)
[2021-09-19] MEDS: ESCITALOPRAM OXALATE 5MG TABLET (LEXAPRO) PO SCH (09:54)
[2021-09-19] MEDS: CINACALCET 30 MG TAB (SENSIPAR) PO SCH ×2 (09:54→20:49)
[2021-09-19] MEDS: LIDOCAINE 5% (LIDODERM) PATCH TD SCH (09:55)
[2021-09-19] MEDS: REMEDY PHYTOPLEX Z-GUARD PASTE 113GM TUBE (FROM STOREROOM PRODUCT) TOP SCH ×3 (09:56→20:50)
[2021-09-19] MEDS ORDERED: ALTEPLASE 2MG/2ML VIAL IV PRN (11:20)
[2021-09-19 14:00] VITALS: BP 128/65
[2021-09-19] MEDS ORDERED: ANALGESIC BALM CRM 3OZ TOP PRN (15:40)
[2021-09-19 20:00] VITALS: BP 150/71
[2021-09-19] MEDS: PANTOPRAZOLE 40MG TAB (PROTONIX) PO SCH (20:49)
[2021-09-19] MEDS: **NOTE PATIENT COMMENT** MISC XX SCH (20:50)
[2021-09-20 06:00] VITALS: BP 139/67
[2021-09-20] MEDS: ESCITALOPRAM OXALATE 5MG TABLET (LEXAPRO) PO SCH (08:09)
[2021-09-20] MEDS: SUCRALFATE SUSP 1GM/10ML UD PO SCH ×4 (08:09→20:47)
[2021-09-20] MEDS: ASPIRIN 81MG ENTERIC TABLET PO SCH (08:10)
[2021-09-20] MEDS: ACETAMINOPHEN TAB 650MG DOSE (2X325MG) PO PRN (08:10)
[2021-09-20] MEDS: CINACALCET 30 MG TAB (SENSIPAR) PO SCH ×2 (08:10→20:50)
[2021-09-20] MEDS: (RENVELA) SEVELAMER **CARBONate** 800 MG TAB PO SCH ×3 (08:10→17:38)
[2021-09-20] MEDS: VITAMIN D 1,000 INTERNATIONAL UNITS TABLET PO SCH (08:10)
[2021-09-20] MEDS: LORATADINE 10 MG TAB PO SCH (08:10)
[2021-09-20] MEDS: LIDOCAINE 5% (LIDODERM) PATCH TD SCH (08:10)
[2021-09-20] MEDS: LACTOBACILLUS ACIDOPHILUS CAP (BACID) PO SCH ×4 (08:10→20:47)
[2021-09-20] MEDS: REMEDY PHYTOPLEX Z-GUARD PASTE 113GM TUBE (FROM STOREROOM PRODUCT) TOP SCH ×3 (08:11→20:48)
[2021-09-20] MEDS: HEPARIN SOD (PORCINE) 5000UNITS/ML 1ML VIAL/SYRINGE SQ SCH ×2 (08:12→20:48)
[2021-09-20 14:00] VITALS: BP 156/71
[2021-09-20 20:00] VITALS: BP 150/67
[2021-09-20] MEDS: PANTOPRAZOLE 40MG TAB (PROTONIX) PO SCH (20:47)
[2021-09-20] MEDS: **NOTE PATIENT COMMENT** MISC XX SCH (20:50)
[2021-09-21] MEDS ORDERED: RAMELTEON 8 MG TAB (ROZEREM) PO PRN (03:15)
[2021-09-21] MEDS: CALCITRIOL 0.25 MCG CAP (S0169) PO SCH (08:16)
[2021-09-21] MEDS: LACTOBACILLUS ACIDOPHILUS CAP (BACID) PO SCH ×4 (08:16→21:22)
[2021-09-21] MEDS: (RENVELA) SEVELAMER **CARBONate** 800 MG TAB PO SCH ×3 (08:16→17:15)
[2021-09-21] MEDS: LORATADINE 10 MG TAB PO SCH (08:16)
[2021-09-21] MEDS: VITAMIN D 1,000 INTERNATIONAL UNITS TABLET PO SCH (08:16)
[2021-09-21] MEDS: ASPIRIN 81MG ENTERIC TABLET PO SCH (08:17)
[2021-09-21] MEDS: SUCRALFATE SUSP 1GM/10ML UD PO SCH ×4 (08:21→21:21)
[2021-09-21] MEDS: ESCITALOPRAM OXALATE 5MG TABLET (LEXAPRO) PO SCH (08:21)
[2021-09-21] MEDS: HEPARIN SOD (PORCINE) 5000UNITS/ML 1ML VIAL/SYRINGE SQ SCH ×2 (08:21→21:22)
[2021-09-21] MEDS: CINACALCET 30 MG TAB (SENSIPAR) PO SCH ×2 (08:21→21:22)
[2021-09-21] MEDS: REMEDY PHYTOPLEX Z-GUARD PASTE 113GM TUBE (FROM STOREROOM PRODUCT) TOP SCH ×3 (08:21→21:22)
[2021-09-21] MEDS: LIDOCAINE 5% (LIDODERM) PATCH TD SCH (09:00)
[2021-09-21 09:02] LABS: BASO % 0.5 % (0.0-1.0); EOS # 0.3 10^3/uL (0.0-0.5); EOS % 3.9 % (0.0-3.0); HEMATOCRIT 30.8 % (42.0-52.0); HEMOGLOBIN 10.1 g/dl (13.5-17.5); LYMPH # 1.3 10^3/uL (1.5-5.0); LYMPH % 16.5 % (24.0-44.0); MEAN CORPUSCULAR HEMOGLOBIN 32.5 pg (27.0-33.0); MEAN CORPUSCULAR HGB CONC 32.8 g/dl (32.0-36.5); MONO % 12.3 % (2.0-8.0); NEUTROPHILS # 5.3 10^3/uL (1.5-8.5); NEUTROPHILS % 66.4 % (36.0-66.0); PLATELET COUNT, AUTOMATED 215 10^3/uL (150-450); RED BLOOD COUNT 3.11 10^6/uL (4.30-6.10)
[2021-09-21 09:16] LABS: CALCIUM LEVEL 11.4 MG/DL (8.8-10.2); CREATININE FOR GFR 7.19 MG/DL (0.70-1.30); GLOMERULAR FILTRATION RATE 7.9 (>42); POTASSIUM SERUM 4.9 MEQ/L (3.5-5.1)
[2021-09-21 10:13] LABS: PTH INTACT 97.7 PG/ML (18.5-88.0)
[2021-09-21] MEDS ORDERED: DARBEPOETIN 100 MCG/0.5 ML *DIALYSIS* SYRINGE (J0882) IV SCH (10:25)
[2021-09-21 14:00] VITALS: BP 135/63
[2021-09-21 20:17] VITALS: BP 157/67
[2021-09-21] MEDS: **NOTE PATIENT COMMENT** MISC XX SCH (21:00)
[2021-09-21] MEDS: PANTOPRAZOLE 40MG TAB (PROTONIX) PO SCH (21:22)
[2021-09-22] MEDS ORDERED: SODIUM CHLORIDE 0.9% 1000ML IV PRN (01:55)
[2021-09-22 05:34] VITALS: BP 127/86
[2021-09-22] MEDS ORDERED: DEXTROSE 50% 50 ML SYRINGE IV STA (08:53)
[2021-09-22] MEDS ORDERED: DEXTROSE 50% 50 ML SYRINGE IV PRN (08:55)
[2021-09-22] MEDS ORDERED: GLUCAGON INJ 1MG VIAL SC PRN (08:55)
[2021-09-22] MEDS ORDERED: GLUCOSE 4GM CHEW TABLET PO PRN (08:55)
[2021-09-22] MEDS: LIDOCAINE 5% (LIDODERM) PATCH TD SCH (09:21)
[2021-09-22] MEDS: (RENVELA) SEVELAMER **CARBONate** 800 MG TAB PO SCH ×3 (09:21→17:12)
[2021-09-22] MEDS: SUCRALFATE SUSP 1GM/10ML UD PO SCH ×4 (09:21→20:48)
[2021-09-22] MEDS: HEPARIN SOD (PORCINE) 5000UNITS/ML 1ML VIAL/SYRINGE SQ SCH ×2 (09:21→20:45)
[2021-09-22] MEDS: LACTOBACILLUS ACIDOPHILUS CAP (BACID) PO SCH ×4 (09:22→20:48)
[2021-09-22] MEDS: CINACALCET 30 MG TAB (SENSIPAR) PO SCH ×2 (09:22→20:46)
[2021-09-22] MEDS: LORATADINE 10 MG TAB PO SCH (09:22)
[2021-09-22] MEDS: VITAMIN D 1,000 INTERNATIONAL UNITS TABLET PO SCH (09:22)
[2021-09-22] MEDS: ASPIRIN 81MG ENTERIC TABLET PO SCH (09:22)
[2021-09-22] MEDS: REMEDY PHYTOPLEX Z-GUARD PASTE 113GM TUBE (FROM STOREROOM PRODUCT) TOP SCH ×3 (09:23→20:49)
[2021-09-22] MEDS ORDERED: NS 500 ML IV ONE (09:30)
[2021-09-22 09:49] LABS: HEMATOCRIT 32.8 % (42.0-52.0); HEMOGLOBIN 10.5 g/dl (13.5-17.5); MEAN CORPUSCULAR HEMOGLOBIN 31.6 pg (27.0-33.0); MEAN CORPUSCULAR VOLUME 98.8 fl (80.0-96.0); PLATELET COUNT, AUTOMATED 217 10^3/uL (150-450); RED BLOOD COUNT 3.32 10^6/uL (4.30-6.10); WHITE BLOOD COUNT 8.8 10^3/uL (4.0-10.0)
[2021-09-22 10:12] LABS: CALCIUM LEVEL 11.9 MG/DL (8.8-10.2); CREATININE FOR GFR 8.98 MG/DL (0.70-1.30); GLOMERULAR FILTRATION RATE 6.1 (>42); POTASSIUM SERUM 5.3 MEQ/L (3.5-5.1)
[2021-09-22] MEDS: HumaLOG INSULIN (NovoLOG) PER UNIT SC SCH ×2 (12:00→17:13)
[2021-09-22 17:00] VITALS: BP 155/71
[2021-09-22 20:00] VITALS: BP 113/56
[2021-09-22] MEDS: PANTOPRAZOLE 40MG TAB (PROTONIX) PO SCH (20:46)
[2021-09-22] MEDS: **NOTE PATIENT COMMENT** MISC XX SCH (20:48)
[2021-09-22] MEDS ORDERED: ESCITALOPRAM OXALATE 5MG TABLET (LEXAPRO) PO SCH (21:00)
[2021-09-23] MEDS: HumaLOG INSULIN (NovoLOG) PER UNIT SC SCH
[2021-09-23 06:00] VITALS: BP 121/65
[2021-09-23 07:06] LABS: BASO # 0.1 10^3/uL (0.0-0.2); BASO % 0.7 % (0.0-1.0); EOS # 0.4 10^3/uL (0.0-0.5); EOS % 5.6 % (0.0-3.0); HEMATOCRIT 30.8 % (42.0-52.0); HEMOGLOBIN 9.8 g/dl (13.5-17.5); LYMPH # 1.6 10^3/uL (1.5-5.0); LYMPH % 23.9 % (24.0-44.0); MEAN CORPUSCULAR HEMOGLOBIN 30.9 pg (27.0-33.0); MEAN CORPUSCULAR HGB CONC 31.8 g/dl (32.0-36.5); MEAN CORPUSCULAR VOLUME 97.2 fl (80.0-96.0); MONO % 14.1 % (2.0-8.0); NEUTROPHILS # 3.8 10^3/uL (1.5-8.5); PLATELET COUNT, AUTOMATED 189 10^3/uL (150-450); RED BLOOD COUNT 3.17 10^6/uL (4.30-6.10); WHITE BLOOD COUNT 6.8 10^3/uL (4.0-10.0)
[2021-09-23 07:39] LABS: HEMOGLOBIN A1c 4.6 %
[2021-09-23 07:47] LABS: CALCIUM LEVEL 10.5 MG/DL (8.8-10.2); CREATININE FOR GFR 4.83 MG/DL (0.70-1.30); GLOMERULAR FILTRATION RATE 12.5 (>42); POTASSIUM SERUM 4.5 MEQ/L (3.5-5.1)
[2021-09-23] MEDS: LACTOBACILLUS ACIDOPHILUS CAP (BACID) PO SCH ×2 (08:09→11:51)
[2021-09-23] MEDS: (RENVELA) SEVELAMER **CARBONate** 800 MG TAB PO SCH ×2 (08:09→11:51)
[2021-09-23] MEDS: HEPARIN SOD (PORCINE) 5000UNITS/ML 1ML VIAL/SYRINGE SQ SCH (08:09)
[2021-09-23] MEDS: ACETAMINOPHEN TAB 650MG DOSE (2X325MG) PO PRN (08:13)
[2021-09-23] MEDS: LORATADINE 10 MG TAB PO SCH (08:13)
[2021-09-23] MEDS: REMEDY PHYTOPLEX Z-GUARD PASTE 113GM TUBE (FROM STOREROOM PRODUCT) TOP SCH (08:14)
[2021-09-23] MEDS: CINACALCET 30 MG TAB (SENSIPAR) PO SCH (08:14)
[2021-09-23] MEDS: LIDOCAINE 5% (LIDODERM) PATCH TD SCH (08:14)
[2021-09-23] MEDS: ASPIRIN 81MG ENTERIC TABLET PO SCH (08:14)
[2021-09-23] MEDS: SUCRALFATE SUSP 1GM/10ML UD PO SCH ×2 (08:15→11:51)
[2021-09-23] MEDS ORDERED: LEXA5TAB13 PO (09:50)
[2021-09-23 14:00] VITALS: BP 106/57
== END 2021-09-23 13:52 | DRG 73 ==
LOC: M PM&R 15:45
PROVIDERS: ADMIT Physical Medicine & Rehabilitation; ATTEND Physical Medicine & Rehabilitation
PROC: 5A1D70Z Performance of Urinary Filtration, Intermittent, Less than 6 Hours Per Day (ICD-10-PCS; principal; 2021-09-10)
DX: G62.89 Other specified polyneuropathies (principal); N18.6 End stage renal disease; I13.2 Hypertensive heart and chronic kidney disease with heart failure and with stage 5 chronic kidney disease, or end stage renal disease; I50.32 Chronic diastolic (congestive) heart failure; N25.81 Secondary hyperparathyroidism of renal origin; R18.8 Other ascites; G93.40 Encephalopathy, unspecified; E87.1 Hypo-osmolality and hyponatremia; K74.60 Unspecified cirrhosis of liver; R53.1 Weakness; Z66 Do not resuscitate; F03.90 Unspecified dementia, unspecified severity, without behavioral disturbance, psychotic disturbance, mood disturbance, and anxiety; I25.10 Atherosclerotic heart disease of native coronary artery without angina pectoris; R13.10 Dysphagia, unspecified; E78.5 Hyperlipidemia, unspecified; G47.00 Insomnia, unspecified; E83.52 Hypercalcemia; I69.391 Dysphagia following cerebral infarction; R20.0 Anesthesia of skin; G63 Polyneuropathy in diseases classified elsewhere; I95.3 Hypotension of hemodialysis; R19.7 Diarrhea, unspecified; I25.2 Old myocardial infarction; F32.A Depression, unspecified; R26.89 Other abnormalities of gait and mobility; R11.0 Nausea; R49.8 Other voice and resonance disorders; R63.0 Anorexia; R00.1 Bradycardia, unspecified; R29.810 Facial weakness; R06.09 Other forms of dyspnea; Z74.09 Other reduced mobility; Z74.1 Need for assistance with personal care; Z99.2 Dependence on renal dialysis; Z85.46 Personal history of malignant neoplasm of prostate; Z85.828 Personal history of other malignant neoplasm of skin; Z79.82 Long term (current) use of aspirin; Z79.899 Other long term (current) drug therapy; Z88.8 Allergy status to other drugs, medicaments and biological substances